=== PATIENT | female | born 1960 | race Caucasian/White ===

== ENCOUNTER → 2016-06-18 | Outpatient (CLI) | payer OTHER ==
[~2016-06-18] VITALS: Ht 172.7 cm; Wt 81.6 kg
[~2016-06-18] MED LIST: LEVO100T5 PO; NS 1,000 ML IV SCH; PRIL20CA9 PO; PROPOFOL 200 MG/20 ML VIAL As Ordered ONE
--- NOTE | 2016-06-18 09:01 | ROOR ---
Patient Name: Jalyn Orr Procedure Date: 06/18/2016 8:39 AM Date of : 1960 Age: 55 Room: [facility] Gender: Female Note Status: Finalized Procedure: Upper GI endoscopy + Biopsies Indications: Dysphagia, Chest pain (non cardiac) Providers: Alessandro Romano MD Referring MD: JANE OCONNELL MD Requesting Provider: Medicines: Monitored Anesthesia Care Complications: No immediate complications. Procedure: Pre-Anesthesia Assessment: - The heart rate, respiratory rate, oxygen saturations, blood pressure, adequacy of pulmonary ventilation, and response to care were monitored throughout the procedure. The Endoscope was introduced through the mouth, and advanced to the second part of duodenum. The upper GI endoscopy was accomplished without difficulty. The patient tolerated the procedure well. Findings: The Z-line was irregular and was found 35 cm from the incisors. Multiple biopsies were obtained with cold forceps for evaluation to rule out Souza's Esophagus randomly at the gastroesophageal junction. A small hiatal hernia was present. No other significant abnormalities were identified in a careful examination of the stomach. The exam of the duodenum was otherwise normal. Impression: - Z-line irregular, 35 cm from the incisors. - Small hiatal hernia. - Multiple biopsies were obtained at the gastroesophageal junction. - The examination was otherwise normal. Recommendation: - Patient has a contact number available for emergencies. The signs and symptoms of potential delayed complications were discussed with the patient. Return to normal activities tomorrow. Written discharge instructions were provided to the patient. - High fiber diet. - Discharge patient to home. - Follow an antireflux regimen. - Continue present medications. - Await pathology results. - Telephone GI clinic for pathology results in 1 week. - The findings and recommendations were discussed with the patient's family. Alessandro Romano MD Alessandro Romano MD 06/18/2016 9:00:31 AM This report has been signed electronically. Number of Addenda: 0 Note Initiated On: 06/18/2016 8:39 AM Estimated Blood Loss: Estimated blood loss: none.
[2016-06-18 09:20] VITALS: BP 158/80
== END | disposition home or self-care (01) ==
LOC: M OPP 07:37
PROVIDERS: ATTEND Internal Medicine Gastroenterology
DX: K22.8 Other specified diseases of esophagus (principal); K44.9 Diaphragmatic hernia without obstruction or gangrene; K20.9 Esophagitis, unspecified; E03.9 Hypothyroidism, unspecified; I25.10 Atherosclerotic heart disease of native coronary artery without angina pectoris; D51.0 Vitamin B12 deficiency anemia due to intrinsic factor deficiency; Z79.899 Other long term (current) drug therapy; Z88.8 Allergy status to other drugs, medicaments and biological substances; Z87.891 Personal history of nicotine dependence

== ENCOUNTER 2016-06-30 18:59 | Emergency (ER) | payer OTHER ==
[~2016-06-30 18:59] MED LIST changes: -NS 1,000 ML IV SCH; -PROPOFOL 200 MG/20 ML VIAL As Ordered ONE
--- NOTE | 2016-06-30 19:53 | ECGEPIP ---
Stationary ECG Study [facility] - ED Test Date: 2016-06-30 Pat Name: SHINE SEYMOUR Department: Room: - Gender: F Churn Driller: ingris : 1960 Requested By: JASSON Guerrier Order Number: [id number] Reading MD: Pamela Horta Measurements Intervals [place] Rate: 106 P: 60 MD: 182 QRS: 7 QRSD: 86 T: 44 QT: 332 QTc: 443 Interpretive Statements SINUS TACHYCARDIA MODERATE ST DEPRESSION INCREASED RATE 03/24/15 Electronically Signed On 06-30-2016 19:53:12 EST by Pamela Horta
[2016-06-30 19:55] LABS: BASO # 0.1 K/mm3 (0.0-0.2); BASO % 0.8 % (0.0-1.0); EOS # 0.5 K/mm3 (0.0-0.50); EOS % 6.4 % (0.0-3.0); LARGE UNSTAINED CELL # 0.1 K/mm3 (0.0-0.4); LYMPH # 1.4 K/mm3 (1.5-4.5); LYMPH % 18.8 % (24.0-44.0); MEAN CORPUSCULAR HEMOGLOBIN 27.4 pg (27.0-33.0); MEAN CORPUSCULAR HGB CONC 32.4 g/dl (32.0-36.5); MEAN CORPUSCULAR VOLUME 84.8 fl (80.0-96.0); MONO # 0.5 K/mm3 (0.0-0.8); MONO % 6.6 % (0.0-5.0); NEUTROPHILS # 4.7 K/mm3 (1.8-7.7); NEUTROPHILS % 66.4 % (36.0-66.0); PLATELET COUNT, AUTOMATED 288 k/mm3 (150-450); RED CELL DISTRIBUTION WIDTH 14.9 % (11.5-14.5); WHITE BLOOD COUNT 7.1 K/mm3 (4.0-10.0)
[2016-06-30] MEDS ORDERED: ASPIRIN 81 MG CHEW TABLET As Ordered ONE (19:57)
[2016-06-30] MEDS ORDERED: NITROGLYCERIN 0.4 MG SUBL TABLET As Ordered ONE (19:58)
[2016-06-30 20:15] LABS: ANION GAP 6 MEQ/L (8-16); BLOOD UREA NITROGEN 15 MG/DL (7-18); CALCIUM LEVEL 9.2 MG/DL (8.5-10.1); CARBON DIOXIDE LEVEL 32 MEQ/L (21-32); CHLORIDE LEVEL 105 MEQ/L (98-107); CREATININE FOR GFR 0.93 MG/DL (0.55-1.02); GLOMERULAR FILTRATION RATE > 60.0 (>51); GLUCOSE, FASTING 113 MG/DL (70-105); POTASSIUM SERUM 3.4 MEQ/L (3.5-5.1); SODIUM LEVEL 143 MEQ/L (136-145)
--- NOTE | 2016-06-30 21:25 | EDDOCDS ---
Nurse's Notes [facility] Name: Jalyn Orr Age: 55 yrs Sex: Female : 1960 Arrival Date: 06/30/2016 Time: 18:59 Bed Family 1 Private MD: Michael Christie Abdul Diagnosis: Other chest pain Presentation: 06/30 19:14 Presenting complaint: Patient states: chest pressure on and off since yesterday. worse dsf with exertion. Adult Sepsis Screening: The patient does not have new or worsening altered mentation. Patient's respiratory rate is less than 22. Systolic blood pressure is greater than 100. Patient has a qSOFA score of 0- Negative Sepsis Screen. Suicide/Homicide risk assessment- the patient denies having any suicidal and/or homicidal ideations and does not present with any other emotional, behavioral or mental health complaints. Status: Patient is not a rn support services or dependent. Transition of care: patient was not received from another setting of care. 19:14 Acuity: ASHLEY Level 3 dsf 19:14 Method Of Arrival: Walkin/Carried/Asstd dsf Triage Assessment: 19:16 General: Appears in no apparent distress, comfortable, Behavior is appropriate for age, dsf cooperative. Pain: Location: chest Pain currently is 4 out of 10 on a pain scale. Pain does not radiate. Quality of pain is described as pressure, Pain began 1 day ago. HIV screening NA for this visit Offered previously. Neurological: Reports weakness fatigue . Respiratory: Denies shortness of breath. GI: Denies nausea. 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 levothyroxine 100 mcg Oral tab 1 tab once daily (Last dose: 06/30/2016 08:00) - PMHx: Hypothyroidism; - PSHx: Left Knee Surgery; Tonsillectomy; - Social history: Smoking status: Patient states was never smoker of tobacco. No barriers to communication noted, The patient speaks fluent German, Speaks appropriately for age. - Family history: Mother has/had Brain Aneurysm. Father has/had DVT. - : The pt / caregiver states he / she is not on anticoagulants. Home medication list is obtained from the patient. - Exposure Risk Screening:: None identified. Screenin:06 Screening information is obtained from the patient. Fall risk: No risks identified. ko2 Assistance ADL's: requires no assistance with activities of daily living. Abuse/DV Screen: The patient / caregiver reports he/she is: not in a situation that causes fear, pain or injury. Nutritional screening: No deficits noted. Advance Directives: Currently, there is no health care proxy. There is no active DNR order. There is There is no Power of Casino Floor Supervisor. home support is adequate. Assessment: 19:30 General: Appears in no apparent distress, Behavior is anxious, cooperative. Pain: ko2 Location: chest. Neurological: Level of Consciousness is awake, alert. Cardiovascular: Heart tones S1 S2 present Rhythm is sinus tachycardia No ectopy. Respiratory: Airway is patent Respiratory effort is even, unlabored, Breath sounds are clear bilaterally. Derm: Skin is normal. 20:36 General: Appears in no apparent distress, Behavior is anxious. Pain: Location: chest ko2 Pain Quality of pain is described as pressure. Neurological: Level of Consciousness is awake, alert. Cardiovascular: Rhythm is regular. Respiratory: Airway is patent Respiratory effort is even, unlabored. Derm: Skin is normal. 20:55 General: Pt has refused CT Angio for the third time and feels that it is her pleurisy ko2 from her acid reflux. Pt was advised that the CT is needed for diagnosis to rule out a blood clot due to her D-dimer being elevated. Pt states that her D-dimer was higher last time when she had pleurisy and that she could go see Dr. Christie Saturday morning or she can come back if pain gets worse. Charge Nurse went in PT is still going to refuse CT. Kailee Jordan notified that pt is going AMA. Charge nurse took out IV. Vital Signs: 19:02 BP 192 / 144; Pulse 94; Resp 18; Temp 97.5(T); Pulse Ox 100% on R/A; Weight 81.65 kg lr2 (R); Height 5 ft. 8 in. (172.72 cm) (R); Pain 0/10; 19:55 Pulse 106 MON; Pulse Ox 98% ; ko2 19:56 BP 150 / 88 (man/); ko2 19:56 BP 182 / 83 (auto/); ko2 20:09 Pulse 100 MON; Pulse Ox 93% ; ko2 20:10 BP 156 / 76 (auto/); ko2 20:11 BP 166 / 86 (auto/); ko2 20:11 Pulse 98 MON; Pulse Ox 94% ; ko2 20:26 BP 167 / 87 (auto/); ko2 20:26 Pulse 94 MON; Pulse Ox 94% ; ko2 19:02 Body Mass Index 27.37 (81.65 kg, 172.72 cm) lr2 Vitals: 19:02 Log In Time: June 30, 2016 at 18:59. lr2 ED Course: 19:02 Patient visited by Hilda Duke. lr2 19:02 Michael Christie is Private Physician. lr2 19:02 Patient moved to Waiting lr2 19:04 Patient moved to Pre RCE lr2 19:16 Triage Initiated dsf 19:20 Jody Conteh,RN is Primary Nurse. cz 19:20 Patient moved to 17 cz 19:26 EKG done. (by ED staff). Reviewed by Jasson Santillan DO. teri 19:27 Pt greeted and oriented to ED. Patient advised of names of staff involved in care, teri location of call julien, wait times and NPO status. Accompanied by Significant Other, Patient has correct armband on for positive identification. Placed in gown. Bed in low position. Call light in reach. Side rails up X 1. instructional design technologist on. Pulse ox on. NIBP on. 19:28 Primary Nurse role handed off by Jody Conteh,LAYTON teri 19:33 Kailee Jordan FNP is PHCP. le 19:47 Patient visited by Elena Esposito RN. ko2 20:03 Patient visited by Kailee Jordan FNP. le 20:06 EKG-ADULT Returned. EDMS 20:07 The patient / caregiver is instructed regarding the plan of care and ED course. ko2 20:08 Inserted saline lock: 20 gauge in right antecubital area and blood collected. The ko2 patient tolerated the procedure well. 20:41 [facility] Payment Agreement was scanned into [employer] and attached to record. gjb 20:44 Patient name changed from Jalyn\S\\S\[place]\S\ to Jalyn\S\ \S\[place]. EDMS 21:00 Michael Christie is Referral Physician. le 21:14 Patient moved to Family 1 may Administered Medications: 20:00 Drug: Aspirin 324 mg [aspirin 81 mg chewable tablet (4 tabs)] Route: PO; ko2 20:05 Drug: Nitrostat 0.4 mg [Nitrostat 0.4 mg sublingual tablet (1 tabs)] Route: Sublingual; ko2 20:12 Drug: Nitrostat 0.4 mg [Nitrostat 0.4 mg sublingual tablet (1 tabs)] Route: Sublingual; ko2 Order Results: Lab Order: Basic Metabolic Profile; SPEC'M 06/30/16 19:46 Test: GLUCOSE, FASTING; Value: 113; Range: 70-105; Abnormal: Above high normal; Units: MG/DL; Status: F Test: BLOOD UREA NITROGEN; Value: 15; Range: 7-18; Units: MG/DL; Status: F Test: CREATININE FOR GFR; Value: 0.93; Range: 0.55-1.02; Units: MG/DL; Status: F Test: GLOMERULAR FILTRATION RATE; Value: > 60.0; Range: >51; Status: F Test: SODIUM LEVEL; Value: 143; Range: 136-145; Units: MEQ/L; Status: F Test: POTASSIUM SERUM; Value: 3.4; Range: 3.5-5.1; Abnormal: Below low normal; Units: MEQ/L; Status: F Test: CHLORIDE LEVEL; Value: 105; Range: 98-107; Units: MEQ/L; Status: F Test: CARBON DIOXIDE LEVEL; Value: 32; Range: 21-32; Units: MEQ/L; Status: F Test: ANION GAP; Value: 6; Range: 8-16; Abnormal: Below low normal; Units: MEQ/L; Status: F Test: CALCIUM LEVEL; Value: 9.2; Range: 8.5-10.1; Units: MG/DL; Status: F Test Note: ; Units are mL/min/1.73 m2 Chronic Kidney Disease Staging per NKF: Stage I & II GFR >=60 Normal to Mildly Decreased Stage III GFR 30-59 Moderately Decreased Stage IV GFR 15-29 Severely Decreased Stage V GFR <15 Very Little GFR Left ESRD GFR <15 on MANNEQUIN SANDER AND FINISHER Lab Order: CBC with Diff; SPEC'M 02/18/17 19:46 Test: WHITE BLOOD COUNT; Value: 7.1; Range: 4.0-10.0; Units: K/mm3; Status: F Test: RED BLOOD COUNT; Value: 5.13; Range: 4.00-5.40; Units: M/mm3; Status: F Test: HEMOGLOBIN; Value: 14.1; Range: 12.0-16.0; Units: g/dl; Status: F Test: HEMATOCRIT; Value: 43.5; Range: 36.0-47.0; Units: %; Status: F Test: MEAN CORPUSCULAR VOLUME; Value: 84.8; Range: 80.0-96.0; Units: fl; Status: F Test: MEAN CORPUSCULAR HEMOGLOBIN; Value: 27.4; Range: 27.0-33.0; Units: pg; Status: F Test: MEAN CORPUSCULAR HGB CONC; Value: 32.4; Range: 32.0-36.5; Units: g/dl; Status: F Test: RED CELL DISTRIBUTION WIDTH; Value: 14.9; Range: 11.5-14.5; Abnormal: Above high normal; Units: %; Status: F Test: PLATELET COUNT, AUTOMATED; Value: 288; Range: 150-450; Units: k/mm3; Status: F Test: NEUTROPHILS %; Value: 66.4; Range: 36.0-66.0; Abnormal: Above high normal; Units: %; Status: F Test: LYMPH %; Value: 18.8; Range: 24.0-44.0; Abnormal: Below low normal; Units: %; Status: F Test: MONO %; Value: 6.6; Range: 0.0-5.0; Abnormal: Above high normal; Units: %; Status: F Test: EOS %; Value: 6.4; Range: 0.0-3.0; Abnormal: Above high normal; Units: %; Status: F Test: BASO %; Value: 0.8; Range: 0.0-1.0; Units: %; Status: F Test: LARGE UNSTAINED CELL %; Value: 1.0; Range: 0.0-4.0; Units: %; Status: F Test: NEUTROPHILS #; Value: 4.7; Range: 1.8-7.7; Units: K/mm3; Status: F Test: LYMPH #; Value: 1.4; Range: 1.5-4.5; Abnormal: Below low normal; Units: K/mm3; Status: F Test: MONO #; Value: 0.5; Range: 0.0-0.8; Units: K/mm3; Status: F Test: EOS #; Value: 0.5; Range: 0.0-0.50; Units: K/mm3; Status: F Test: BASO #; Value: 0.1; Range: 0.0-0.2; Units: K/mm3; Status: F Test: LARGE UNSTAINED CELL #; Value: 0.1; Range: 0.0-0.4; Units: K/mm3; Status: F Lab Order: Cardiac Injury Profile; [facility] 06/30/16 19:46 Test: CPK CREATINE PHOSPHOKINASE; Value: 93; Range: 26-192; Units: U/L; Status: F Test: CK-MB VALUE MASS; Value: 1.1; Range: 0.0-3.6; Units: NG/ML; Status: F Test: MB/CK RELATIVE INDEX; Value: 1.18; Range: < OR =4; Status: F Test Note: ; DIAGNOSIS CRITERIA MMB ng/ml Relative Index (RI) NON-AMI < or = 5 N/A HEART ZONE > 5 < or = 4 AMI > 5 > 4 Lab Order: D-Dimer Quant; [facility] 06/30/16 19:46 Test: D-DIMER QUANT; Value: 583.9; Range: <500; Abnormal: Above high normal; Units: ng/ml; Status: F Lab Order: Troponin; [facility] 06/30/16 19:46 Test: TROPONIN I; Value: < 0.02; Range: < 0.10; Units: NG/ML; Status: F Test Note: ; Troponin I Reference Interval for [employer] LOCI: 99th Percentile= 0.00-0.045 ng/ml Risk Stratification: <= 0.10 ng/ml Decreased Risk for Adverse Clinical Events. 0.10-1.50 ng/ml Increased Risk for Adverse Clinical Events. Evaluation of additional criterion and/or repeat testing in 2-6 hours is suggested to rule out myocardial damage. >= 1.50 ng/ml Indicative of Myocardial Injury. 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 le 21:24 Patient left the ED. ko2 Signatures: Dispatcher [employer] EDDaisy Stratton, RN Elías Coy, RN RN Kailee Pena, DIE SINKING MACHINE OPERATOR DIE SINKING MACHINE OPERATOR Geri Person, Missy GreyRN Elena Bhakta RN RN ko2 Beck, Gabriela gjb Ross, Laura lr2 MTDD
--- NOTE | 2016-06-30 21:25 | EDDOCDS ---
Physician Documentation [facility] Name: Jalyn Orr Age: 55 yrs Sex: Female : 1960 Arrival Date: 06/30/2016 Time: 18:59 Bed Family 1 Private MD: Michael Christie Abdul Disposition: 06/30/16 21:00 Patient has left against medical advice. Impression: Other chest pain. - Patients states they are going to Home/Self Care. - Condition is Good. - Discharge Instructions: Nonspecific Chest Pain. Medication Reconciliation, Local Pharmacy Hours form. Follow up: Michael Christie; When: Call to arrange an appointment; Reason: Recheck today's complaints, Continuance of care. - Problem is new. - Symptoms are unchanged. - Notes: Your EKG and initial lab work, looking specifically at your heart, were normal. As discussed earlier, this should have been repeated at 3:00 a.m.to have more reassurance that this is not a heart event that is causing your pain. Additionally, your d-dimer is mildly elevated. This is a very non-specific test, but we use it to evaluate whether we should do additional testing to evaluate for blood clots in the lungs or legs. The only way to evaluate this fully is to do a CT scan, which you do not want at this time Please return to the ED if your pain worsens, especially if you become more short of breath, your heart rate is elevated, you have any dizziness or have any other concerns. Please follow-up, with Dr Christie, on Saturday Historical: - Allergies: Motrin (Hives); - Home Meds: 1. levothyroxine 100 mcg Oral tab 1 tab once daily (Last dose: 06/30/2016 08:00) - PMHx: Hypothyroidism; - PSHx: Left Knee Surgery; Tonsillectomy; - Social history: Smoking status: Patient states was never smoker of tobacco. No barriers to communication noted, The patient speaks fluent Faroese, Speaks appropriately for age. - Family history: Mother has/had Brain Aneurysm. Father has/had DVT. - : The pt / caregiver states he / she is not on anticoagulants. Home medication list is obtained from the patient. - Exposure Risk Screening:: None identified. [employer] WEBSPHERE COMMERCE CONSULTANT: 06/30 19:16 LMP N/A - Post-menopause dsf Vital Signs: 19:02 BP 192 / 144; Pulse 94; Resp 18; Temp 97.5(T); Pulse Ox 100% on R/A; Weight 81.65 kg / lr2 180.01 lbs (R); Height 5 ft. 8 in. (172.72 cm) (R); Pain 0/10; 19:55 Pulse 106 MON; Pulse Ox 98% ; ko2 19:56 BP 150 / 88 (man/); ko2 19:56 BP 182 / 83 (auto/); ko2 20:09 Pulse 100 MON; Pulse Ox 93% ; ko2 20:10 BP 156 / 76 (auto/); ko2 20:11 BP 166 / 86 (auto/); ko2 20:11 Pulse 98 MON; Pulse Ox 94% ; ko2 20:26 BP 167 / 87 (auto/); ko2 20:26 Pulse 94 MON; Pulse Ox 94% ; ko2 19:02 Body Mass Index 27.37 (81.65 kg, 172.72 cm) lr2 MDM: 19:21 ECG WITH READING ER PHYS+CARDIAG ordered. EDMS 19:41 [facility]. Nursing Order ordered. le 19:46 Aspirin Chewable Tablet 324 mg PO once ordered. le 19:46 Nitrostat 0.4 mg Sublingual every 5 minutes; hold if SBP<90mmHg.Document Pain Score le Response to Each Dose x3 ordered. 19:46 Search Advertising Strategist/Pulse Ox/q 30 min VS ordered. le 19:46 IV Saline Lock ordered. le 19:46 Rhythm Strip to chart ordered. le 19:46 Undress patient appropriately for examination ordered. le 19:48 Basic Metabolic Profile Ordered. EDMS 19:48 CBC with Diff Ordered. EDMS 19:48 Cardiac Injury Profile Ordered. EDMS 19:48 D-Dimer Quant Ordered. EDMS 19:48 Troponin Ordered. EDMS 20:07 [facility] Trade Show Manager Order ordered. le 20:08 D-Dimer Quant Reviewed. le 20:08 [facility] Trade Show Manager Order complete. ml3 20:10 CT Chest Angio R/O PE Ordered. EDMS 20:38 Financial registration complete. gjb 20:41 [facility] Payment Agreement was scanned into [employer] and attached to record. gjb 20:53 Basic Metabolic Profile Reviewed. le 20:53 CBC with Diff Reviewed. le 20:53 Cardiac Injury Profile Reviewed. le 20:53 Troponin Reviewed. le 20:53 EKG-ADULT Reviewed. le Administered Medications: 20:00 Drug: Aspirin 324 mg [aspirin 81 mg chewable tablet (4 tabs)] Route: PO; ko2 20:05 Drug: Nitrostat 0.4 mg [Nitrostat 0.4 mg sublingual tablet (1 tabs)] Route: Sublingual; ko2 20:12 Drug: Nitrostat 0.4 mg [Nitrostat 0.4 mg sublingual tablet (1 tabs)] Route: Sublingual; ko2 Signatures: Dispatcher [employer] EDMS Genia Thompson, Video Control Engineer Unit ml3 Kailee Jordan, Missy Howard,RN RN Elena MatosRN RN ko2 Lotus Edward The chart was reviewed and I authenticate all verbal orders and agree with the evaluation and treatment provided.Corrections: (The following items were deleted from the chart) 20:28 19:49 Chest, 2 view (PA\E\Lat)+XR ordered. EDMS EDMS Attachments: 20:41 [facility] Payment Agreement gjb MTDD
--- NOTE | 2016-07-02 22:24 | EDDOCDS ---
Physician Documentation [facility] Name: Jalyn Orr Age: 55 yrs Sex: Female : 1960 Arrival Date: 06/30/2016 Time: 18:59 Bed Family 1 Private MD: Michael Christie Abdul Disposition: 06/30/16 21:00 Patient has left against medical advice. Impression: Other chest pain. - Patients states they are going to Home/Self Care. - Condition is Good. - Discharge Instructions: Nonspecific Chest Pain. Medication Reconciliation, Local Pharmacy Hours form. Follow up: Michael Christie; When: Call to arrange an appointment; Reason: Recheck today's complaints, Continuance of care. - Problem is new. - Symptoms are unchanged. - Notes: Your EKG and initial lab work, looking specifically at your heart, were normal. As discussed earlier, this should have been repeated at 3:00 a.m.to have more reassurance that this is not a heart event that is causing your pain. Additionally, your d-dimer is mildly elevated. This is a very non-specific test, but we use it to evaluate whether we should do additional testing to evaluate for blood clots in the lungs or legs. The only way to evaluate this fully is to do a CT scan, which you do not want at this time Please return to the ED if your pain worsens, especially if you become more short of breath, your heart rate is elevated, you have any dizziness or have any other concerns. Please follow-up, with Dr Christie, on Saturday Historical: - Allergies: Motrin (Hives); - Home Meds: 1. levothyroxine 100 mcg Oral tab 1 tab once daily (Last dose: 06/30/2016 08:00) - PMHx: Hypothyroidism; - PSHx: Left Knee Surgery; Tonsillectomy; - Social history: Smoking status: Patient states was never smoker of tobacco. No barriers to communication noted, The patient speaks fluent Faroese, Speaks appropriately for age. - Family history: Mother has/had Brain Aneurysm. Father has/had DVT. - : The pt / caregiver states he / she is not on anticoagulants. Home medication list is obtained from the patient. - Exposure Risk Screening:: None identified. LAUNDRY ROUTE DRIVER: 06/30 19:16 LMP N/A - Post-menopause dsf Vital Signs: 19:02 BP 192 / 144; Pulse 94; Resp 18; Temp 97.5(T); Pulse Ox 100% on R/A; Weight 81.65 kg / lr2 180.01 lbs (R); Height 5 ft. 8 in. (172.72 cm) (R); Pain 0/10; 19:55 Pulse 106 MON; Pulse Ox 98% ; ko2 19:56 BP 150 / 88 (man/); ko2 19:56 BP 182 / 83 (auto/); ko2 20:09 Pulse 100 MON; Pulse Ox 93% ; ko2 20:10 BP 156 / 76 (auto/); ko2 20:11 BP 166 / 86 (auto/); ko2 20:11 Pulse 98 MON; Pulse Ox 94% ; ko2 20:26 BP 167 / 87 (auto/); ko2 20:26 Pulse 94 MON; Pulse Ox 94% ; ko2 19:02 Body Mass Index 27.37 (81.65 kg, 172.72 cm) lr2 MDM: 19:21 ECG WITH READING ER PHYS+CARDIAG ordered. EDMS 19:41 [facility] [place] [place]. Nursing Order ordered. le 19:46 Aspirin Chewable Tablet 324 mg PO once ordered. le 19:46 Nitrostat 0.4 mg Sublingual every 5 minutes; hold if SBP<90mmHg.Document Pain Score le Response to Each Dose x3 ordered. 19:46 Corridor Redevelopment Manager/Pulse Ox/q 30 min VS ordered. le 19:46 IV Saline Lock ordered. le 19:46 Rhythm Strip to chart ordered. le 19:46 Undress patient appropriately for examination ordered. le 19:48 Basic Metabolic Profile Ordered. EDMS 19:48 CBC with Diff Ordered. EDMS 19:48 Cardiac Injury Profile Ordered. EDMS 19:48 D-Dimer Quant Ordered. EDMS 19:48 Troponin Ordered. EDMS 20:07 [facility] [place] [place] Box Press Operator Order ordered. le 20:08 D-Dimer Quant Reviewed. le 20:08 [facility] [place] [place] Box Press Operator Order complete. ml3 20:10 CT Chest Angio R/O PE Ordered. EDMS 20:38 Financial registration complete. gjb 20:41 [facility] Payment Agreement was scanned into [employer] and attached to record. gjb 20:53 Basic Metabolic Profile Reviewed. le 20:53 CBC with Diff Reviewed. le 20:53 Cardiac Injury Profile Reviewed. le 20:53 Troponin Reviewed. le 20:53 EKG-ADULT Reviewed. le 07/01 09:50 T-Sheet-- Draft Copy was scanned into [employer] and attached to record. jp5 07/02 11:03 Refusal of Services was scanned into [employer] and attached to record. gb 11:03 ECG/EKG was scanned into [employer] and attached to record. gb Administered Medications: 06/30 20:00 Drug: Aspirin 324 mg [aspirin 81 mg chewable tablet (4 tabs)] Route: PO; ko2 20:05 Drug: Nitrostat 0.4 mg [Nitrostat 0.4 mg sublingual tablet (1 tabs)] Route: Sublingual; ko2 20:12 Drug: Nitrostat 0.4 mg [Nitrostat 0.4 mg sublingual tablet (1 tabs)] Route: Sublingual; ko2 Signatures: Dispatcher [employer] EDMS Analilia Baker, Reg Reg gb Genia Thompson, Gas Appliance Mechanic Unit ml3 Kailee Jordan, NOZZLE WORKER NOZZLE WORKER Missy Bhatti,RN RN Elena Matos,RN RN ko2 Bryson Hewitt jp5 Lotus Edward The chart was reviewed and I authenticate all verbal orders and agree with the evaluation and treatment provided.Corrections: (The following items were deleted from the chart) 20:28 19:49 Chest, 2 view (PA\E\Lat)+XR ordered. EDMS EDMS Attachments: 20:41 [facility] Payment Agreement sukhi 07/01 09:50 T-Sheet-- Draft Copy [facility] 11:03 ECG/EKG Chart Complete MTDD
--- NOTE | 2016-07-02 22:24 | EDDOCDS ---
Nurse's Notes [facility] Name: Shine Orr Age: 55 yrs Sex: Female : 1960 Arrival Date: 06/30/2016 Time: 18:59 Bed Family 1 Private MD: Michael Christie Abdul Diagnosis: Other chest pain Presentation: 06/30 19:14 Presenting complaint: Patient states: chest pressure on and off since yesterday. worse dsf with exertion. Adult Sepsis Screening: The patient does not have new or worsening altered mentation. Patient's respiratory rate is less than 22. Systolic blood pressure is greater than 100. Patient has a qSOFA score of 0- Negative Sepsis Screen. Suicide/Homicide risk assessment- the patient denies having any suicidal and/or homicidal ideations and does not present with any other emotional, behavioral or mental health complaints. Status: Patient is not a legal services professional or dependent. Transition of care: patient was not received from another setting of care. 19:14 Acuity: ASHLEY Level 3 dsf 19:14 Method Of Arrival: Walkin/Carried/Asstd dsf Triage Assessment: 19:16 General: Appears in no apparent distress, comfortable, Behavior is appropriate for age, dsf cooperative. Pain: Location: chest Pain currently is 4 out of 10 on a pain scale. Pain does not radiate. Quality of pain is described as pressure, Pain began 1 day ago. HIV screening NA for this visit Offered previously. Neurological: Reports weakness fatigue . Respiratory: Denies shortness of breath. GI: Denies nausea. RN MEDICAL SURGICAL: 19:16 LMP N/A - Post-menopause dsf Historical: - Allergies: Motrin (Hives); - Home Meds: 1. levothyroxine 100 mcg Oral tab 1 tab once daily (Last dose: 06/30/2016 08:00) - PMHx: Hypothyroidism; - PSHx: Left Knee Surgery; Tonsillectomy; - Social history: Smoking status: Patient states was never smoker of tobacco. No barriers to communication noted, The patient speaks fluent Telugu, Speaks appropriately for age. - Family history: Mother has/had Brain Aneurysm. Father has/had DVT. - : The pt / caregiver states he / she is not on anticoagulants. Home medication list is obtained from the patient. - Exposure Risk Screening:: None identified. Screenin:06 Screening information is obtained from the patient. Fall risk: No risks identified. ko2 Assistance ADL's: requires no assistance with activities of daily living. Abuse/DV Screen: The patient / caregiver reports he/she is: not in a situation that causes fear, pain or injury. Nutritional screening: No deficits noted. Advance Directives: Currently, there is no health care proxy. There is no active DNR order. There is There is no Power of Security System Administrator. home support is adequate. Assessment: 19:30 General: Appears in no apparent distress, Behavior is anxious, cooperative. Pain: ko2 Location: chest. Neurological: Level of Consciousness is awake, alert. Cardiovascular: Heart tones S1 S2 present Rhythm is sinus tachycardia No ectopy. Respiratory: Airway is patent Respiratory effort is even, unlabored, Breath sounds are clear bilaterally. Derm: Skin is normal. 20:36 General: Appears in no apparent distress, Behavior is anxious. Pain: Location: chest ko2 Pain Quality of pain is described as pressure. Neurological: Level of Consciousness is awake, alert. Cardiovascular: Rhythm is regular. Respiratory: Airway is patent Respiratory effort is even, unlabored. Derm: Skin is normal. 20:55 General: Pt has refused CT Angio for the third time and feels that it is her pleurisy ko2 from her acid reflux. Pt was advised that the CT is needed for diagnosis to rule out a blood clot due to her D-dimer being elevated. Pt states that her D-dimer was higher last time when she had pleurisy and that she could go see Dr. Christie Saturday morning or she can come back if pain gets worse. Charge Nurse went in PT is still going to refuse CT. Kailee Jordan notified that pt is going AMA. Charge nurse took out IV. Vital Signs: 19:02 BP 192 / 144; Pulse 94; Resp 18; Temp 97.5(T); Pulse Ox 100% on R/A; Weight 81.65 kg lr2 (R); Height 5 ft. 8 in. (172.72 cm) (R); Pain 0/10; 19:55 Pulse 106 MON; Pulse Ox 98% ; ko2 19:56 BP 150 / 88 (man/); ko2 19:56 BP 182 / 83 (auto/); ko2 20:09 Pulse 100 MON; Pulse Ox 93% ; ko2 20:10 BP 156 / 76 (auto/); ko2 20:11 BP 166 / 86 (auto/); ko2 20:11 Pulse 98 MON; Pulse Ox 94% ; ko2 20:26 BP 167 / 87 (auto/); ko2 20:26 Pulse 94 MON; Pulse Ox 94% ; ko2 19:02 Body Mass Index 27.37 (81.65 kg, 172.72 cm) lr2 Vitals: 19:02 Log In Time: June 30, 2016 at 18:59. lr2 ED Course: 19:02 Patient visited by Hilda Duke. lr2 19:02 Michael Christie is Private Physician. lr2 19:02 Patient moved to Waiting lr2 19:04 Patient moved to Pre RCE lr2 19:16 Triage Initiated dsf 19:20 Jody Conteh,RN is Primary Nurse. cz 19:20 Patient moved to 17 cz 19:26 EKG done. (by ED staff). Reviewed by Jasson Santillan DO. teri 19:27 Pt greeted and oriented to ED. Patient advised of names of staff involved in care, teri location of call julien, wait times and NPO status. Accompanied by Significant Other, Patient has correct armband on for positive identification. Placed in gown. Bed in low position. Call light in reach. Side rails up X 1. monitor and storage bin tender on. Pulse ox on. NIBP on. 19:28 Primary Nurse role handed off by Jody Conteh,LAYTON teri 19:33 Kailee Jordan FNP is PHCP. le 19:47 Patient visited by Elena Esposito RN. ko2 20:03 Patient visited by Kailee Jordan FNP. le 20:06 EKG-ADULT Returned. EDMS 20:07 The patient / caregiver is instructed regarding the plan of care and ED course. ko2 20:08 Inserted saline lock: 20 gauge in right antecubital area and blood collected. The ko2 patient tolerated the procedure well. 20:41 [facility] Payment Agreement was scanned into webme and attached to record. gjb 20:44 Patient name changed from Shine\S\\S\Catarina\S\ to Shine\S\ \S\Catarina. EDMS 21:00 Michael Christie is Referral Physician. le 21:14 Patient moved to Family 1 may 14 09:50 T-Sheet-- Draft Copy was scanned into webme and attached to record. jp5 07/02 11:03 Refusal of Services was scanned into webme and attached to record. gb 11:03 ECG/EKG was scanned into webme and attached to record. gb Administered Medications: 06/30 20:00 Drug: Aspirin 324 mg [aspirin 81 mg chewable tablet (4 tabs)] Route: PO; ko2 20:05 Drug: Nitrostat 0.4 mg [Nitrostat 0.4 mg sublingual tablet (1 tabs)] Route: Sublingual; ko2 20:12 Drug: Nitrostat 0.4 mg [Nitrostat 0.4 mg sublingual tablet (1 tabs)] Route: Sublingual; ko2 Attachments: 07/02 11:03 Refusal of Services gb Order Results: Lab Order: Basic Metabolic Profile; SPEC'M 06/30/16 19:46 Test: GLUCOSE, FASTING; Value: 113; Range: 70-105; Abnormal: Above high normal; Units: MG/DL; Status: F Test: BLOOD UREA NITROGEN; Value: 15; Range: 7-18; Units: MG/DL; Status: F Test: CREATININE FOR GFR; Value: 0.93; Range: 0.55-1.02; Units: MG/DL; Status: F Test: GLOMERULAR FILTRATION RATE; Value: > 60.0; Range: >51; Status: F Test: SODIUM LEVEL; Value: 143; Range: 136-145; Units: MEQ/L; Status: F Test: POTASSIUM SERUM; Value: 3.4; Range: 3.5-5.1; Abnormal: Below low normal; Units: MEQ/L; Status: F Test: CHLORIDE LEVEL; Value: 105; Range: 98-107; Units: MEQ/L; Status: F Test: CARBON DIOXIDE LEVEL; Value: 32; Range: 21-32; Units: MEQ/L; Status: F Test: ANION GAP; Value: 6; Range: 8-16; Abnormal: Below low normal; Units: MEQ/L; Status: F Test: CALCIUM LEVEL; Value: 9.2; Range: 8.5-10.1; Units: MG/DL; Status: F Test Note: ; Units are mL/min/1.73 m2 Chronic Kidney Disease Staging per NKF: Stage I & II GFR >=60 Normal to Mildly Decreased Stage III GFR 30-59 Moderately Decreased Stage IV GFR 15-29 Severely Decreased Stage V GFR <15 Very Little GFR Left ESRD GFR <15 on LAND TITLE EXAMINER Lab Order: CBC with Diff; HUBERT 06/30/16 19:46 Test: WHITE BLOOD COUNT; Value: 7.1; Range: 4.0-10.0; Units: K/mm3; Status: F Test: RED BLOOD COUNT; Value: 5.13; Range: 4.00-5.40; Units: M/mm3; Status: F Test: HEMOGLOBIN; Value: 14.1; Range: 12.0-16.0; Units: g/dl; Status: F Test: HEMATOCRIT; Value: 43.5; Range: 36.0-47.0; Units: %; Status: F Test: MEAN CORPUSCULAR VOLUME; Value: 84.8; Range: 80.0-96.0; Units: fl; Status: F Test: MEAN CORPUSCULAR HEMOGLOBIN; Value: 27.4; Range: 27.0-33.0; Units: pg; Status: F Test: MEAN CORPUSCULAR HGB CONC; Value: 32.4; Range: 32.0-36.5; Units: g/dl; Status: F Test: RED CELL DISTRIBUTION WIDTH; Value: 14.9; Range: 11.5-14.5; Abnormal: Above high normal; Units: %; Status: F Test: PLATELET COUNT, AUTOMATED; Value: 288; Range: 150-450; Units: k/mm3; Status: F Test: NEUTROPHILS %; Value: 66.4; Range: 36.0-66.0; Abnormal: Above high normal; Units: %; Status: F Test: LYMPH %; Value: 18.8; Range: 24.0-44.0; Abnormal: Below low normal; Units: %; Status: F Test: MONO %; Value: 6.6; Range: 0.0-5.0; Abnormal: Above high normal; Units: %; Status: F Test: EOS %; Value: 6.4; Range: 0.0-3.0; Abnormal: Above high normal; Units: %; Status: F Test: BASO %; Value: 0.8; Range: 0.0-1.0; Units: %; Status: F Test: LARGE UNSTAINED CELL %; Value: 1.0; Range: 0.0-4.0; Units: %; Status: F Test: NEUTROPHILS #; Value: 4.7; Range: 1.8-7.7; Units: K/mm3; Status: F Test: LYMPH #; Value: 1.4; Range: 1.5-4.5; Abnormal: Below low normal; Units: K/mm3; Status: F Test: MONO #; Value: 0.5; Range: 0.0-0.8; Units: K/mm3; Status: F Test: EOS #; Value: 0.5; Range: 0.0-0.50; Units: K/mm3; Status: F Test: BASO #; Value: 0.1; Range: 0.0-0.2; Units: K/mm3; Status: F Test: LARGE UNSTAINED CELL #; Value: 0.1; Range: 0.0-0.4; Units: K/mm3; Status: F Lab Order: Cardiac Injury Profile; SPEC'M 06/30/16 19:46 Test: CPK CREATINE PHOSPHOKINASE; Value: 93; Range: 26-192; Units: U/L; Status: F Test: CK-MB VALUE MASS; Value: 1.1; Range: 0.0-3.6; Units: NG/ML; Status: F Test: MB/CK RELATIVE INDEX; Value: 1.18; Range: < OR =4; Status: F Test Note: ; DIAGNOSIS CRITERIA MMB ng/ml Relative Index (RI) NON-AMI < or = 5 N/A HEART ZONE > 5 < or = 4 AMI > 5 > 4 Lab Order: D-Dimer Quant; SPEC'M 06/30/16 19:46 Test: D-DIMER QUANT; Value: 583.9; Range: <500; Abnormal: Above high normal; Units: ng/ml; Status: F Lab Order: Troponin; SPEC' 06/30/16 19:46 Test: TROPONIN I; Value: < 0.02; Range: < 0.10; Units: NG/ML; Status: F Test Note: ; Troponin I Reference Interval for Siemens [place] LOCI: 99th Percentile= 0.00-0.045 ng/ml Risk Stratification: <= 0.10 ng/ml Decreased Risk for Adverse Clinical Events. 0.10-1.50 ng/ml Increased Risk for Adverse Clinical Events. Evaluation of additional criterion and/or repeat testing in 2-6 hours is suggested to rule out myocardial damage. >= 1.50 ng/ml Indicative of Myocardial Injury. 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 le 21:24 Patient left the ED. ko2 Signatures: Dispatcher [employer] EDMS Daisy Valdivia RN RN jan Zecher, Calvin, Analilia Sheriff RN, Reg Reg Kailee Simpson, CONTRACT MANAGEMENT SPECIALIST CONTRACT MANAGEMENT SPECIALIST Geri Person, Missy Grey,RN Elena Bhakta RN RN Bryson Macdonald Gabriela gjb Ross, Laura lr2 Chart Complete MTDD
--- NOTE | 2016-07-02 22:24 | EDDOCDS ---
Physician Documentation [facility] Name: Jalyn Orr Age: 55 yrs Sex: Female : 1960 Arrival Date: 06/30/2016 Time: 18:59 Bed Family 1 Private MD: Michael Christie Abdul Disposition: 06/30/16 21:00 Patient has left against medical advice. Impression: Other chest pain. - Patients states they are going to Home/Self Care. - Condition is Good. - Discharge Instructions: Nonspecific Chest Pain. Medication Reconciliation, Local Pharmacy Hours form. Follow up: Michael Christie; When: Call to arrange an appointment; Reason: Recheck today's complaints, Continuance of care. - Problem is new. - Symptoms are unchanged. - Notes: Your EKG and initial lab work, looking specifically at your heart, were normal. As discussed earlier, this should have been repeated at 3:00 a.m.to have more reassurance that this is not a heart event that is causing your pain. Additionally, your d-dimer is mildly elevated. This is a very non-specific test, but we use it to evaluate whether we should do additional testing to evaluate for blood clots in the lungs or legs. The only way to evaluate this fully is to do a CT scan, which you do not want at this time Please return to the ED if your pain worsens, especially if you become more short of breath, your heart rate is elevated, you have any dizziness or have any other concerns. Please follow-up, with Dr Christie, on Saturday Historical: - Allergies: Motrin (Hives); - Home Meds: 1. levothyroxine 100 mcg Oral tab 1 tab once daily (Last dose: 06/30/2016 08:00) - PMHx: Hypothyroidism; - PSHx: Left Knee Surgery; Tonsillectomy; - Social history: Smoking status: Patient states was never smoker of tobacco. No barriers to communication noted, The patient speaks fluent [place], Speaks appropriately for age. - Family history: Mother has/had Brain Aneurysm. Father has/had DVT. - : The pt / caregiver states he / she is not on anticoagulants. Home medication list is obtained from the patient. - Exposure Risk Screening:: None identified. DEPUTY PROBATION OFFICER: 06/30 19:16 LMP N/A - Post-menopause dsf Vital Signs: 19:02 BP 192 / 144; Pulse 94; Resp 18; Temp 97.5(T); Pulse Ox 100% on R/A; Weight 81.65 kg / lr2 180.01 lbs (R); Height 5 ft. 8 in. (172.72 cm) (R); Pain 0/10; 19:55 Pulse 106 MON; Pulse Ox 98% ; ko2 19:56 BP 150 / 88 (man/); ko2 19:56 BP 182 / 83 (auto/); ko2 20:09 Pulse 100 MON; Pulse Ox 93% ; ko2 20:10 BP 156 / 76 (auto/); ko2 20:11 BP 166 / 86 (auto/); ko2 20:11 Pulse 98 MON; Pulse Ox 94% ; ko2 20:26 BP 167 / 87 (auto/); ko2 20:26 Pulse 94 MON; Pulse Ox 94% ; ko2 19:02 Body Mass Index 27.37 (81.65 kg, 172.72 cm) lr2 MDM: 19:21 ECG WITH READING ER PHYS+CARDIAG ordered. EDMS 19:41 [facility]. Nursing Order ordered. le 19:46 Aspirin Chewable Tablet 324 mg PO once ordered. le 19:46 Nitrostat 0.4 mg Sublingual every 5 minutes; hold if SBP<90mmHg.Document Pain Score le Response to Each Dose x3 ordered. 19:46 Underground Repairer/Pulse Ox/q 30 min VS ordered. le 19:46 IV Saline Lock ordered. le 19:46 Rhythm Strip to chart ordered. le 19:46 Undress patient appropriately for examination ordered. le 19:48 Basic Metabolic Profile Ordered. EDMS 19:48 CBC with Diff Ordered. EDMS 19:48 Cardiac Injury Profile Ordered. EDMS 19:48 D-Dimer Quant Ordered. EDMS 19:48 Troponin Ordered. EDMS 20:07 [facility] Pricing Consultant Order ordered. le 20:08 D-Dimer Quant Reviewed. le 20:08 [facility] [place] Pricing Consultant Order complete. ml3 20:10 CT Chest Angio R/O PE Ordered. EDMS 20:38 Financial registration complete. gjb 20:41 [facility] Payment Agreement was scanned into GetSet and attached to record. gjb 20:53 Basic Metabolic Profile Reviewed. le 20:53 CBC with Diff Reviewed. le 20:53 Cardiac Injury Profile Reviewed. le 20:53 Troponin Reviewed. le 20:53 EKG-ADULT Reviewed. le 07/01 09:50 T-Sheet-- Draft Copy was scanned into GetSet and attached to record. jp5 07/02 11:03 Refusal of Services was scanned into [employer] and attached to record. gb 11:03 ECG/EKG was scanned into [employer] and attached to record. gb Administered Medications: 06/30 20:00 Drug: Aspirin 324 mg [aspirin 81 mg chewable tablet (4 tabs)] Route: PO; ko2 20:05 Drug: Nitrostat 0.4 mg [Nitrostat 0.4 mg sublingual tablet (1 tabs)] Route: Sublingual; ko2 20:12 Drug: Nitrostat 0.4 mg [Nitrostat 0.4 mg sublingual tablet (1 tabs)] Route: Sublingual; ko2 Signatures: Dispatcher [employer] EDMS Analilia Baker, Reg Reg gb Genia Thompson, Cocoa Mill Operator Unit ml3 Kailee Jordan, QUARRY PLUG AND FEATHER DRILLER QUARRY PLUG AND FEATHER DRILLER Missy Bhatti,RN RN Elena Matos,RN RN ko2 Bryson Hewitt jp5 Lotus Edward The chart was reviewed and I authenticate all verbal orders and agree with the evaluation and treatment provided.Corrections: (The following items were deleted from the chart) 20:28 19:49 Chest, 2 view (PA\E\Lat)+XR ordered. EDMS EDMS Attachments: 20:41 [facility] [place] [facility] Payment Agreement sukhi 07/01 09:50 T-Sheet-- Draft Copy [facility] 11:03 ECG/EKG Chart Complete MTDD
== END 2016-06-30 20:59 | disposition left against medical advice (07) ==
LOC: M ED 18:59
DX: R07.9 Chest pain, unspecified (principal); E03.9 Hypothyroidism, unspecified; Z82.49 Family history of ischemic heart disease and other diseases of the circulatory system; Z79.899 Other long term (current) drug therapy; Z88.6 Allergy status to analgesic agent

== ENCOUNTER → 2016-08-16 | Outpatient (CLI) | payer OTHER ==
[~2016-08-16] MED LIST changes: +E-Z PAQUE 60% w/v SUSP 355ML BOTTLE As Ordered ONE; +VARIBAR NECTAR 40% w/v 240ML SUSP BTL As Ordered ONE; +VARIBAR PUDDING 40% w/v 230ML TUBE As Ordered ONE
--- NOTE | 2016-08-16 13:42 | REP ---
MODIFIED BARIUM SWALLOW: Modified barium swallow performed. Barium materials of varying consistencies were ingested with the speech pathologist on hand. There was prompt passage of these materials through the oropharynx and hypopharynx into the esophagus with evidence of laryngeal penetration or tracheal aspiration. Please see the speech pathologist report for further details. 30 seconds of fluoroscopy time utilized. Signed by Santos Gupta MD 08/16/2016 04:52 P
== END ==
LOC: M ST 10:55
PROVIDERS: ATTEND Internal Medicine Gastroenterology
DX: R13.10 Dysphagia, unspecified (principal)

== ENCOUNTER → 2016-08-28 | Outpatient (CLI) | payer OTHER ==
[~2016-08-28] MED LIST changes: -E-Z PAQUE 60% w/v SUSP 355ML BOTTLE As Ordered ONE; -VARIBAR NECTAR 40% w/v 240ML SUSP BTL As Ordered ONE; -VARIBAR PUDDING 40% w/v 230ML TUBE As Ordered ONE
[2016-08-28 09:02] LABS: MEAN CORPUSCULAR HEMOGLOBIN 26.5 pg (27.0-33.0); MEAN CORPUSCULAR HGB CONC 31.4 g/dl (32.0-36.5); MEAN CORPUSCULAR VOLUME 84.4 fl (80.0-96.0); RED CELL DISTRIBUTION WIDTH 15.1 % (11.5-14.5)
[2016-08-28 09:25] LABS: ALBUMIN 3.8 GM/DL (3.2-5.2); ALBUMIN/GLOBULIN RATIO 1.12 (1.00-1.93); ALKALINE PHOSPHATASE 67 U/L (45-117); ALT/SGPT 22 U/L (12-78); ANION GAP 6 MEQ/L (8-16); AST/SGOT 14 U/L (15-37); BILIRUBIN,TOTAL 0.4 MG/DL (0.2-1.0); BLOOD UREA NITROGEN 12 MG/DL (7-18); CALCIUM LEVEL 8.7 MG/DL (8.5-10.1); CARBON DIOXIDE LEVEL 31 MEQ/L (21-32); CHLORIDE LEVEL 105 MEQ/L (98-107); CHOLESTEROL LEVEL 251 MG/DL (<200); CREATININE FOR GFR 0.78 MG/DL (0.55-1.02); GLOMERULAR FILTRATION RATE > 60.0 (>51); GLUCOSE, FASTING 86 MG/DL (70-105); POTASSIUM SERUM 4.5 MEQ/L (3.5-5.1); SODIUM LEVEL 142 MEQ/L (136-145); THYROXINE (T4) 9.2 UG/DL (4.5-12.0); TOTAL PROTEIN 7.2 GM/DL (6.4-8.2); TRIGLYCERIDES LEVEL 67 MG/DL (<150)
--- NOTE | 2016-08-28 11:17 | REP ---
Chest two views HISTORY: Hypertension Comparison: 03/24/2015 The lungs are clear. The heart is normal in size. The pulmonary vasculature is normal in appearance. The bony structure is intact. IMPRESSION: No acute disease. Signed by Kristopher Thomas MD 08/28/2016 11:09 A
--- NOTE | 2016-08-28 18:57 | ECGEPIP ---
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
== END ==
LOC: M LAB 07:56
PROVIDERS: ATTEND Family Medicine
DX: I10 Essential (primary) hypertension (principal)

== ENCOUNTER → 2016-09-12 | Outpatient (REF) | payer OTHER | LOC: M LAB REF 16:16 | PROVIDERS: ATTEND Surgery | DX: Z02.1 Encounter for pre-employment examination (principal) ==

== ENCOUNTER → 2016-10-18 | Outpatient (CLI) | payer OTHER ==
--- NOTE | 2016-10-18 17:32 | REP ---
LEFT WRIST SERIES: Four views of the left wrist are performed. There is no evidence of acute fracture or dislocation. There is moderate narrowing with subchondral sclerosis and cystic change and mild spurring at the joint between the trapezium and base of first metacarpal. IMPRESSION: No acute fracture or dislocation. Degenerative changes are at the joint between the trapezium base of first metacarpal. Signed by Santos Gupta MD 10/18/2016 08:07 P
== END ==
LOC: M ADAMS 16:41
PROVIDERS: ATTEND Physician Assistant
DX: M25.532 Pain in left wrist (principal)

== ENCOUNTER → 2017-01-21 | Outpatient (CLI) | payer OTHER ==
[~2017-01-21] MED LIST changes: +CARA1TAB6 PO; +PROT1TAB2 PO
[2017-01-21 08:14] LABS: MEAN CORPUSCULAR HEMOGLOBIN 27.6 pg (27.0-33.0); MEAN CORPUSCULAR VOLUME 86.1 fl (80.0-96.0); RED CELL DISTRIBUTION WIDTH 15.2 % (11.5-14.5); WHITE BLOOD COUNT 4.8 K/mm3 (4.0-10.0)
--- NOTE | 2017-01-21 08:23 | REP ---
Chest x-ray: Two views. History: Pneumonia. fatigue. Comparison study: August 28, 2016 . Findings: The lungs are well inflated and free of infiltrate. The pleural angles are sharp. The heart size is normal. Pulmonary vasculature is not increased. No significant bony abnormality is seen. Impression: Negative chest x-ray. Signed by Tay Rowe MD 01/21/2017 08:15 A
[2017-01-21 08:34] LABS: ALBUMIN 3.8 GM/DL (3.2-5.2); ALBUMIN/GLOBULIN RATIO 1.23 (1.00-1.93); ALKALINE PHOSPHATASE 59 U/L (45-117); ALT/SGPT 22 U/L (12-78); ANION GAP 7 MEQ/L (8-16); AST/SGOT 13 U/L (15-37); BILIRUBIN,TOTAL 0.3 MG/DL (0.2-1.0); BLOOD UREA NITROGEN 12 MG/DL (7-18); CALCIUM LEVEL 9.3 MG/DL (8.5-10.1); CARBON DIOXIDE LEVEL 28 MEQ/L (21-32); CHLORIDE LEVEL 108 MEQ/L (98-107); CHOLESTEROL LEVEL 225 MG/DL (<200); CREATININE FOR GFR 0.76 MG/DL (0.55-1.02); GLOMERULAR FILTRATION RATE > 60.0 (>51); GLUCOSE, FASTING 90 MG/DL (70-105); PERCENT SATURATION 26.1 % (13.2-45.0); POTASSIUM SERUM 4.2 MEQ/L (3.5-5.1); SODIUM LEVEL 143 MEQ/L (136-145); TOTAL IRON BINDING CAPACITY 345 UG/DL (250-450); TOTAL PROTEIN 6.9 GM/DL (6.4-8.2); TRIGLYCERIDES LEVEL 71 MG/DL (<150)
[2017-01-21 10:35] LABS: CONTROL LINE MONO INT CTR LINE PRESENT
== END ==
LOC: M LAB 07:32
PROVIDERS: ATTEND Family Medicine
DX: J18.9 Pneumonia, unspecified organism (principal); R53.83 Other fatigue

== ENCOUNTER 2017-01-26 14:44 | Emergency (ER) | payer OTHER ==
[~2017-01-26] VITALS: Ht 170.2 cm; Wt 81.8 kg
[~2017-01-26 14:44] MED LIST changes: -CARA1TAB6 PO; -PROT1TAB2 PO
[2017-01-26] MEDS ORDERED: NS 1,000 ML IV ONE (15:45)
[2017-01-26] MEDS ORDERED: METOCLOPRAMIDE INJ 10MG/2ML VIAL (J2765) IV ONE (15:45)
[2017-01-26] MEDS ORDERED: PANTOPRAZOLE 40MG INJ (PROTONIX) (C9113) IV ONE (15:45)
[2017-01-26] MEDS ORDERED: SUCRALFATE 1 GM TAB PO ONE (15:45)
[2017-01-26] MEDS ORDERED: ONDANSETRON 4MG/2ML VIAL (J2405) IV ONE (15:45)
[2017-01-26 15:59] LABS: BASO % 0.2 % (0.0-1.0); EOS % 0.9 % (0.0-3.0); LARGE UNSTAINED CELL # 0.1 K/mm3 (0.0-0.4); LARGE UNSTAINED CELL % 1.3 % (0.0-4.0); LYMPH # 0.4 K/mm3 (1.5-4.5); LYMPH % 7.7 % (24.0-44.0); MEAN CORPUSCULAR HEMOGLOBIN 28.2 pg (27.0-33.0); MEAN CORPUSCULAR HGB CONC 33.9 g/dl (32.0-36.5); MEAN CORPUSCULAR VOLUME 83.3 fl (80.0-96.0); MONO # 0.3 K/mm3 (0.0-0.8); MONO % 6.4 % (0.0-5.0); NEUTROPHILS # 4.1 K/mm3 (1.8-7.7); NEUTROPHILS % 83.5 % (36.0-66.0); PLATELET COUNT, AUTOMATED 264 k/mm3 (150-450); RED CELL DISTRIBUTION WIDTH 14.8 % (11.5-14.5); WHITE BLOOD COUNT 4.9 K/mm3 (4.0-10.0)
[2017-01-26 16:00] LABS: INR 0.97
[2017-01-26 16:10] LABS: ALBUMIN 3.8 GM/DL (3.2-5.2); ALBUMIN/GLOBULIN RATIO 1.19 (1.00-1.93); ALKALINE PHOSPHATASE 57 U/L (45-117); ALT/SGPT 20 U/L (12-78); AMYLASE 44 U/L (25-115); ANION GAP 10 MEQ/L (8-16); AST/SGOT 12 U/L (15-37); BILIRUBIN,DIRECT 0.1 MG/DL (0.0-0.2); BILIRUBIN,TOTAL 0.5 MG/DL (0.2-1.0); BLOOD UREA NITROGEN 10 MG/DL (7-18); CALCIUM LEVEL 8.6 MG/DL (8.5-10.1); CARBON DIOXIDE LEVEL 25 MEQ/L (21-32); CHLORIDE LEVEL 108 MEQ/L (98-107); CREATININE FOR GFR 0.68 MG/DL (0.55-1.02); GLOMERULAR FILTRATION RATE > 60.0 (>51); GLUCOSE, FASTING 95 MG/DL (70-105); POTASSIUM SERUM 3.9 MEQ/L (3.5-5.1); SODIUM LEVEL 143 MEQ/L (136-145)
--- NOTE | 2017-01-26 16:29 | REP ---
Clinical: Abdominal pain. Technique: Upright view of the chest with supine and upright views of the abdomen and pelvis. Findings: Frontal upright view of the chest demonstrates no acute cardiopulmonary process or free air below the diaphragm to suspect pneumoperitoneum. Supine and upright views of the abdomen and pelvis demonstrate nonspecific bowel gas pattern without obstruction or perforation. No organomegaly. Skeletal structures normal for age. Impression: Nonspecific bowel gas pattern. Signed by Emmett Kaur MD 01/26/2017 04:20 P
[2017-01-26] MEDS ORDERED: PROT1TAB2 PO (17:09)
[2017-01-26] MEDS ORDERED: CARA1TAB6 PO (17:09)
[2017-01-26] MEDS ORDERED: ACETAMINOPHEN 325 MG TAB PO ONE (17:15)
--- NOTE | 2017-01-26 17:30 | ECGEPIP ---
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
[2017-01-26 17:42] VITALS: BP 139/65
== END 2017-01-26 18:03 | disposition home or self-care (01) ==
LOC: M ED 14:44
DX: K29.00 Acute gastritis without bleeding (principal); E07.9 Disorder of thyroid, unspecified
CPT/HCPCS: 74022; 80048; 80076; 81001; 82150; 82550; 82553; 83690; 85025; 85610; 87086; 93005; 93041; 96361; 96374; 96375; 99284; C9113; J2405; J2765

== ENCOUNTER → 2017-02-12 | Outpatient (REF) | payer OTHER ==
[~2017-02-12] MED LIST changes: +CARA1TAB6 PO; +PROT1TAB2 PO
== END ==
LOC: M LAB REF 10:07
PROVIDERS: ATTEND Family Medicine
DX: N39.0 Urinary tract infection, site not specified (principal)

== ENCOUNTER → 2017-02-21 | Outpatient (REF) | payer OTHER ==
[2017-02-21 15:04] LABS: IMMUNOGLOBULIN G 1210 MG/DL (681-1648); IMMUNOGLOBULIN M 40.1 MG/DL (40-230)
[2017-02-26 00:11] LABS: IgG SERUM (part of Subclasses) 1099 mg/dL (700-1600); IgG Subclass 1 699 mg/dL (248-810); IgG Subclass 2 303 mg/dL (130-555); IgG Subclass 3 82 mg/dL (15-102); IgG Subclass 4 39 mg/dL (2-96)
== END ==
LOC: M SFHCPLAZ 12:02
PROVIDERS: ATTEND Internal Medicine Infectious Disease
DX: B99.9 Unspecified infectious disease (principal); H04.123 Dry eye syndrome of bilateral lacrimal glands

== ENCOUNTER → 2017-06-17 | Outpatient (CLI) | payer OTHER ==
[2017-06-17 08:14] LABS: BASO # 0.1 10^3/uL (0.0-0.2); BASO % 1.4 % (0.0-1.0); EOS # 0.3 10^3/uL (0.0-0.50); EOS % 6.6 % (0.0-3.0); HEMATOCRIT 41.5 % (36.0-47.0); HEMOGLOBIN 13.6 g/dl (12.0-16.0); IMMATURE GRANULOCYTE % 0.2 % (0-0); LYMPH # 1.3 10^3/uL (1.5-4.5); LYMPH % 26.3 % (24.0-44.0); MEAN CORPUSCULAR HEMOGLOBIN 27.2 pg (27.0-33.0); MEAN CORPUSCULAR HGB CONC 32.8 g/dl (32.0-36.5); MONO # 0.5 10^3/uL (0.0-0.8); MONO % 10.9 % (0.0-5.0); NEUTROPHILS # 2.7 10^3/uL (1.8-7.7); NEUTROPHILS % 54.6 % (36.0-66.0); PLATELET COUNT, AUTOMATED 310 10^3/uL (150-450); RED CELL DISTRIBUTION WIDTH 15.4 % (11.5-14.5); WHITE BLOOD COUNT 4.9 10^3/uL (4.0-10.0)
[2017-06-17 08:49] LABS: ALBUMIN 3.8 GM/DL (3.2-5.2); ALBUMIN/GLOBULIN RATIO 1.19 (1.00-1.93); ALKALINE PHOSPHATASE 59 U/L (45-117); ALT/SGPT 18 U/L (12-78); ANION GAP 6 MEQ/L (8-16); AST/SGOT 10 U/L (7-37); BILIRUBIN,TOTAL 0.2 MG/DL (0.2-1.0); BLOOD UREA NITROGEN 14 MG/DL (7-18); CALCIUM LEVEL 8.6 MG/DL (8.5-10.1); CARBON DIOXIDE LEVEL 27 MEQ/L (21-32); CHLORIDE LEVEL 109 MEQ/L (98-107); CREATININE FOR GFR 0.73 MG/DL (0.55-1.30); GLOMERULAR FILTRATION RATE > 60.0 (>51); GLUCOSE, FASTING 98 MG/DL (70-100); POTASSIUM SERUM 4.4 MEQ/L (3.5-5.1); SODIUM LEVEL 142 MEQ/L (136-145); THYROID STIMULATING HORMONE 0.293 uIU/ML (0.358-3.740)
[2017-06-19 00:06] LABS: EBV VIRAL CAPSID AG IgM <36.0 U/mL (0.0-35.9)
== END ==
LOC: M LAB 07:32
DX: R53.83 Other fatigue (principal)
CPT/HCPCS: 84443

== ENCOUNTER → 2017-09-08 | Outpatient (REF) | payer OTHER | LOC: M WUC 09:05 | DX: J02.9 Acute pharyngitis, unspecified (principal) ==

== ENCOUNTER → 2017-12-13 | Outpatient (CLI) | payer OTHER ==
[2017-12-13 08:03] LABS: HEMATOCRIT 41.5 % (36.0-47.0); HEMOGLOBIN 13.4 g/dl (12.0-15.5); MEAN CORPUSCULAR HGB CONC 32.3 g/dl (32.0-36.5); MEAN CORPUSCULAR VOLUME 86.6 fl (80.0-96.0); PLATELET COUNT, AUTOMATED 276 10^3/uL (150-450); RED BLOOD COUNT 4.79 10^6/uL (4.00-5.40); RED CELL DISTRIBUTION WIDTH 15.6 % (11.5-14.5); WHITE BLOOD COUNT 4.9 10^3/uL (4.0-10.0)
[2017-12-13 08:26] LABS: ESTIMATED AVERAGE GLUCOSE 108 MG/DL (60-110); HEMOGLOBIN A1c 5.4 %
[2017-12-13 08:35] LABS: ALBUMIN 3.7 GM/DL (3.2-5.2); ALBUMIN/GLOBULIN RATIO 1.19 (1.00-1.93); ALKALINE PHOSPHATASE 51 U/L (45-117); ALT/SGPT 25 U/L (12-78); ANION GAP 5 MEQ/L (8-16); AST/SGOT 14 U/L (7-37); BILIRUBIN,TOTAL 0.4 MG/DL (0.2-1.0); BLOOD UREA NITROGEN 12 MG/DL (7-18); CALCIUM LEVEL 8.8 MG/DL (8.5-10.1); CARBON DIOXIDE LEVEL 30 MEQ/L (21-32); CHLORIDE LEVEL 110 MEQ/L (98-107); CHOLESTEROL LEVEL 211 MG/DL (<200); CHOLESTEROL RISK RATIO 2.813 (<5); CREATININE FOR GFR 0.77 MG/DL (0.55-1.30); GLOMERULAR FILTRATION RATE > 60.0 (>51); GLUCOSE, FASTING 91 MG/DL (70-100); HDL CHOLESTEROL 75 MG/DL (>40); IRON (FE) 130 UG/DL (50-170); NON-HDL-C 136 MG/DL; PERCENT SATURATION 41.7 % (13.2-45.0); POTASSIUM SERUM 4.4 MEQ/L (3.5-5.1); SODIUM LEVEL 145 MEQ/L (136-145); THYROXINE (T4) 9.9 UG/DL (4.5-12.0); TOTAL IRON BINDING CAPACITY 312 UG/DL (250-450); TOTAL PROTEIN 6.8 GM/DL (6.4-8.2); TRIGLYCERIDES LEVEL 65 MG/DL (<150)
[2017-12-13 09:06] LABS: TOTAL 25(OH) VITAMIN D 19.6 NG/ML (30.0-100.0)
[2017-12-13 09:07] LABS: TOTAL T3 98.3 NG/DL (60.0-181.0); VITAMIN B12 LEVEL 333 PG/ML (247-911)
== END ==
LOC: M LAB 07:03
DX: D64.9 Anemia, unspecified (principal)
CPT/HCPCS: 83550

== ENCOUNTER → 2018-06-05 | Outpatient (CLI) | payer OTHER ==
[2018-06-05 08:36] LABS: BASO # 0.1 10^3/uL (0.0-0.2); EOS # 0.3 10^3/uL (0.0-0.50); EOS % 6.7 % (0.0-3.0); HEMATOCRIT 41.8 % (36.0-47.0); HEMOGLOBIN 13.6 g/dl (12.0-15.5); LYMPH # 1.5 10^3/uL (1.5-4.5); LYMPH % 29.6 % (24.0-44.0); MEAN CORPUSCULAR HGB CONC 32.5 g/dl (32.0-36.5); MONO # 0.6 10^3/uL (0.0-0.8); NEUTROPHILS # 2.6 10^3/uL (1.8-7.7); NEUTROPHILS % 51.5 % (36.0-66.0); PLATELET COUNT, AUTOMATED 326 10^3/uL (150-450); RED BLOOD COUNT 4.86 10^6/uL (4.00-5.40); WHITE BLOOD COUNT 5.1 10^3/uL (4.0-10.0)
[2018-06-05 08:59] LABS: HEMOGLOBIN A1c 5.6 %
[2018-06-05 09:16] LABS: ALBUMIN 3.9 GM/DL (3.2-5.2); ALT/SGPT 27 U/L (12-78); BILIRUBIN,TOTAL 0.4 MG/DL (0.2-1.0); BLOOD UREA NITROGEN 13 MG/DL (7-18); CALCIUM LEVEL 9.1 MG/DL (8.5-10.1); CARBON DIOXIDE LEVEL 28 MEQ/L (21-32); CHLORIDE LEVEL 106 MEQ/L (98-107); CHOLESTEROL LEVEL 263 MG/DL (<200); CHOLESTEROL RISK RATIO 3.287 (<5); CREATININE FOR GFR 0.76 MG/DL (0.55-1.30); GLOMERULAR FILTRATION RATE > 60.0 (>51); GLUCOSE, FASTING 97 MG/DL (70-100); HDL CHOLESTEROL 80 MG/DL (>40); LDL CHOLESTEROL 171 MG/DL (<100); NON-HDL-C 183 MG/DL; POTASSIUM SERUM 4.4 MEQ/L (3.5-5.1); RHEUMATOID FACTOR QUANT < 10.0 IU/ML (<15.0); SODIUM LEVEL 142 MEQ/L (136-145); THYROXINE (T4) 8.8 UG/DL (4.5-12.0); TOTAL PROTEIN 6.9 GM/DL (6.4-8.2); TRIGLYCERIDES LEVEL 60 MG/DL (<150)
[2018-06-05 09:29] LABS: TOTAL 25(OH) VITAMIN D 26.6 NG/ML (30.0-100.0)
[2018-06-05 09:47] LABS: ERYTHROCYTE SEDIMENTATION RATE 10 mm/hr (0-30)
--- NOTE | 2018-06-05 19:51 | REP ---
Clinical: Right hip pain. Sciatica. Technique: Frontal view of the pelvis with neutral and frog lateral views of the right hip. Findings: Osseous structures and joint spaces are intact and normal. Hip joints appear symmetric on frontal pelvic radiograph. No acute fracture dislocation. No evidence for healed injury. No significant degenerative or congenital abnormalities are appreciated. Surrounding soft tissues are unremarkable. Impression: Normal pelvis and right hip series. Electronically Signed by Emmett Kaur MD 06/05/2018 07:43 P
--- NOTE | 2018-06-05 19:54 | REP ---
Clinical: Back and hip pain with sciatica . Technique: AP, lateral, bilateral oblique, and coned-down views. Findings: Alignment and lordosis is maintained. The vertebral bodies including transverse process and spinous processes are intact and without evidence for acute fracture / compression injury or subluxation. No evidence for spondylolysis or spondylolisthesis. Mild degenerative disc disease includes osteophytosis and endplate sclerosis at L2-3 and L3-4. Hypertrophic facet changes at L5-L1 are also noted. Impression: Mild multilevel degenerative changes. Electronically Signed by Emmett Kaur MD 06/05/2018 07:45 P
== END ==
LOC: M LAB 07:54
PROVIDERS: ATTEND Family Medicine
DX: E03.9 Hypothyroidism, unspecified (principal); D64.9 Anemia, unspecified; M54.30 Sciatica, unspecified side; M19.90 Unspecified osteoarthritis, unspecified site

== ENCOUNTER 2018-06-08 16:02 | Emergency (ER) | payer OTHER ==
[~2018-06-08] VITALS: Ht 170.2 cm; Wt 77.3 kg
[2018-06-08] MEDS ORDERED: LEVO88TA3 PO (16:06)
[2018-06-08 17:04] VITALS: BP 143/67
[2018-06-08 17:36] LABS: MONO REFLEX EBV COMP NEGATIVE (NEGATIVE)
[2018-06-08 17:59] LABS: INFLUENZA A AMPLIFICATION NEGATIVE (NEGATIVE); INFLUENZA B AMPLIFICATION NEGATIVE (NEGATIVE)
[2018-06-11 00:11] LABS: EBV VIRAL CAPSID AG IgM <36.0 U/mL (0.0-35.9)
== END 2018-06-08 18:27 | disposition home or self-care (01) ==
LOC: M ED 16:02
DX: J02.8 Acute pharyngitis due to other specified organisms (principal)

== ENCOUNTER → 2018-07-28 | Outpatient (CLI) | payer OTHER ==
[~2018-07-28] MED LIST changes: +LEVO88TA3 PO
[2018-07-28 08:22] LABS: HEMATOCRIT 38.6 % (36.0-47.0); HEMOGLOBIN 12.2 g/dl (12.0-15.5); MEAN CORPUSCULAR HEMOGLOBIN 27.6 pg (27.0-33.0); MEAN CORPUSCULAR HGB CONC 31.6 g/dl (32.0-36.5); MEAN CORPUSCULAR VOLUME 87.3 fl (80.0-96.0); PLATELET COUNT, AUTOMATED 328 10^3/uL (150-450); RED BLOOD COUNT 4.42 10^6/uL (4.00-5.40); WHITE BLOOD COUNT 4.7 10^3/uL (4.0-10.0)
--- NOTE | 2018-07-28 08:27 | REP ---
Clinical: COPD . Comparison: 01/21/2017 . Technique: PA and lateral. Findings: The mediastinum and cardiac silhouette are normal. The lung membreno are clear and without acute consolidation, effusion, or pneumothorax. The skeletal structures are intact and normal. Impression: 1. No acute cardiopulmonary process. Electronically Signed by Emmett Kaur MD 07/28/2018 08:18 A
[2018-07-28 08:59] LABS: ALBUMIN 3.4 GM/DL (3.2-5.2); ALT/SGPT 17 U/L (12-78); BILIRUBIN,TOTAL 0.3 MG/DL (0.2-1.0); BLOOD UREA NITROGEN 15 MG/DL (7-18); CALCIUM LEVEL 8.4 MG/DL (8.5-10.1); CARBON DIOXIDE LEVEL 29 MEQ/L (21-32); CHLORIDE LEVEL 106 MEQ/L (98-107); CHOLESTEROL LEVEL 188 MG/DL (<200); CHOLESTEROL RISK RATIO 3.298 (<5); CREATININE FOR GFR 0.66 MG/DL (0.55-1.30); GLOMERULAR FILTRATION RATE > 60.0 (>51); GLUCOSE, FASTING 88 MG/DL (70-100); HDL CHOLESTEROL 57 MG/DL (>40); LDL CHOLESTEROL 117 MG/DL (<100); NON-HDL-C 131 MG/DL; SODIUM LEVEL 141 MEQ/L (136-145); TOTAL PROTEIN 6.5 GM/DL (6.4-8.2); TRIGLYCERIDES LEVEL 69 MG/DL (<150)
== END ==
LOC: M LAB 07:09
PROVIDERS: ATTEND Family Medicine
DX: J44.9 Chronic obstructive pulmonary disease, unspecified (principal)

== ENCOUNTER → 2018-08-05 | Outpatient (CLI) | payer OTHER ==
[2018-08-05 09:14] LABS: IMMUNOGLOBULIN M 23.5 MG/DL (40-230)
== END ==
LOC: M LAB 07:56
PROVIDERS: ATTEND Internal Medicine Pulmonary Disease
DX: R05 Cough (principal)

== ENCOUNTER → 2018-08-13 | Outpatient (REF) | payer OTHER ==
[2018-08-13 19:45] LABS: BASO % 0.8 % (0.0-1.0); EOS # 0.4 10^3/uL (0.0-0.50); HEMATOCRIT 42.6 % (36.0-47.0); HEMOGLOBIN 13.3 g/dl (12.0-15.5); LYMPH # 0.6 10^3/uL (1.5-4.5); MEAN CORPUSCULAR HEMOGLOBIN 27.2 pg (27.0-33.0); MEAN CORPUSCULAR HGB CONC 31.2 g/dl (32.0-36.5); MEAN CORPUSCULAR VOLUME 87.1 fl (80.0-96.0); MONO # 0.6 10^3/uL (0.0-0.8); MONO % 12.2 % (0.0-5.0); NEUTROPHILS # 3.5 10^3/uL (1.8-7.7); NEUTROPHILS % 67.8 % (36.0-66.0); PLATELET COUNT, AUTOMATED 273 10^3/uL (150-450); RED BLOOD COUNT 4.89 10^6/uL (4.00-5.40); WHITE BLOOD COUNT 5.2 10^3/uL (4.0-10.0)
== END ==
LOC: M LABDRWAD 19:12 → M LAB REF 19:12
PROVIDERS: ATTEND Physician Assistant
DX: R53.83 Other fatigue (principal); J02.9 Acute pharyngitis, unspecified

== ENCOUNTER → 2018-09-09 | Outpatient (REF) | payer OTHER ==
[2018-09-09 15:54] LABS: BASO % 0.6 % (0.0-1.0); EOS # 0.4 10^3/uL (0.0-0.50); EOS % 6.8 % (0.0-3.0); HEMATOCRIT 40.8 % (36.0-47.0); LYMPH # 1.2 10^3/uL (1.5-4.5); LYMPH % 21.5 % (24.0-44.0); MEAN CORPUSCULAR HEMOGLOBIN 27.3 pg (27.0-33.0); MEAN CORPUSCULAR HGB CONC 31.9 g/dl (32.0-36.5); MEAN CORPUSCULAR VOLUME 85.5 fl (80.0-96.0); MONO # 0.5 10^3/uL (0.0-0.8); MONO % 9.7 % (0.0-5.0); NEUTROPHILS # 3.3 10^3/uL (1.8-7.7); PLATELET COUNT, AUTOMATED 308 10^3/uL (150-450); RED BLOOD COUNT 4.77 10^6/uL (4.00-5.40); WHITE BLOOD COUNT 5.4 10^3/uL (4.0-10.0)
[2018-09-09 16:36] LABS: ERYTHROCYTE SEDIMENTATION RATE 11 mm/hr (0-30)
[2018-09-09 17:00] LABS: C REACTIVE PROTEIN QUANTITATIV < 0.30 MG/DL (0.00-0.30); IMMUNOGLOBULIN E 6.8 IU/ML (<100); IMMUNOGLOBULIN M 28.4 MG/DL (40-230)
== END ==
LOC: M SFHCPLAZ 14:21
PROVIDERS: ATTEND Internal Medicine Infectious Disease
DX: D80.4 Selective deficiency of immunoglobulin M [IgM] (principal); B27.90 Infectious mononucleosis, unspecified without complication

== ENCOUNTER → 2018-11-10 | Outpatient (CLI) | payer OTHER ==
[2018-11-10 08:13] LABS: HEMATOCRIT 41.9 % (36.0-47.0); HEMOGLOBIN 13.2 g/dl (12.0-15.5); MEAN CORPUSCULAR HEMOGLOBIN 27.1 pg (27.0-33.0); MEAN CORPUSCULAR HGB CONC 31.5 g/dl (32.0-36.5); PLATELET COUNT, AUTOMATED 281 10^3/uL (150-450); RED BLOOD COUNT 4.87 10^6/uL (4.00-5.40); WHITE BLOOD COUNT 5.1 10^3/uL (4.0-10.0)
[2018-11-10 08:30] LABS: INR 1.13; PROTHROMBIN TIME 14.2 SECONDS (11.8-14.0)
[2018-11-10 08:36] LABS: APPEARANCE, URINE CLEAR (CLEAR); BACTERIA, URINE AUTO NEGATIVE (NEGATIVE); BILIRUBIN, URINE AUTO NEGATIVE (NEGATIVE); BLOOD, URINE BLOOD 1+ (NEGATIVE); COLOR, URINE YELLOW (YELLOW); GLUCOSE, URINE (UA) AUTO NEGATIVE (NEGATIVE); KETONE, URINE AUTO TRACE mg/dL (NEGATIVE); LEUKOCYTE ESTERASE, URINE AUTO NEGATIVE (NEGATIVE); MUCUS, URINE MODERATE (NEGATIVE); NITRITE, URINE AUTO NEGATIVE (NEGATIVE); PROTEIN, URINE AUTO NEGATIVE (NEGATIVE); RBC, URINE AUTO 2 /HPF (0-3); SPECIFIC GRAVITY URINE AUTO 1.023 (1.002-1.035); SQUAMOUS EPITHELIAL CELL UR AU 0 /HPF (0-6); UROBILINOGEN, URINE AUTO 0.2 mg/dL (0.0-2.0); WBC, URINE AUTO 0 /HPF (0-3)
[2018-11-10 08:40] LABS: ALBUMIN 3.5 GM/DL (3.2-5.2); ALT/SGPT 18 U/L (12-78); BILIRUBIN,TOTAL 0.4 MG/DL (0.2-1.0); BLOOD UREA NITROGEN 9 MG/DL (7-18); CALCIUM LEVEL 9.2 MG/DL (8.5-10.1); CARBON DIOXIDE LEVEL 29 MEQ/L (21-32); CHLORIDE LEVEL 108 MEQ/L (98-107); CHOLESTEROL LEVEL 200 MG/DL (<200); CHOLESTEROL RISK RATIO 2.469 (<5); CREATININE FOR GFR 0.72 MG/DL (0.55-1.30); GLOMERULAR FILTRATION RATE > 60.0 (>51); GLUCOSE, FASTING 90 MG/DL (70-100); HDL CHOLESTEROL 81 MG/DL (>40); LDL CHOLESTEROL 106 MG/DL (<100); NON-HDL-C 119 MG/DL; POTASSIUM SERUM 4.3 MEQ/L (3.5-5.1); SODIUM LEVEL 141 MEQ/L (136-145); TOTAL PROTEIN 7.3 GM/DL (6.4-8.2); TRIGLYCERIDES LEVEL 67 MG/DL (<150)
[2018-11-10 08:41] LABS: IRON (FE) 83 UG/DL (50-170); MAGNESIUM LEVEL 2.1 MG/DL (1.8-2.4); PERCENT SATURATION 27.4 % (13.2-45.0); THYROXINE (T4) 10.5 UG/DL (4.5-12.0); TOTAL IRON BINDING CAPACITY 303 UG/DL (250-450)
[2018-11-10 09:55] LABS: TOTAL 25(OH) VITAMIN D 16.3 NG/ML (30.0-100.0); TOTAL T3 91.9 NG/DL (60.0-181.0)
== END ==
LOC: M LAB 07:25 → M RAD 07:25
PROVIDERS: ATTEND Family Medicine
DX: Z01.818 Encounter for other preprocedural examination (principal); R53.83 Other fatigue; E03.9 Hypothyroidism, unspecified

== ENCOUNTER → 2019-07-25 | Outpatient (REF) | payer OTHER ==
[2019-07-25 22:31] LABS: INFLUENZA A AMPLIFICATION NEGATIVE (NEGATIVE); INFLUENZA B AMPLIFICATION NEGATIVE (NEGATIVE)
== END ==
LOC: M LAB REF 21:50
PROVIDERS: ATTEND Physician Assistant
DX: R50.9 Fever, unspecified (principal)

== ENCOUNTER → 2020-03-08 | Outpatient (CLI) | payer OTHER ==
[2020-03-08 08:19] LABS: HEMATOCRIT 41.9 % (36.0-47.0); HEMOGLOBIN 13.1 g/dl (12.0-15.5); MEAN CORPUSCULAR HEMOGLOBIN 27.2 pg (27.0-33.0); MEAN CORPUSCULAR HGB CONC 31.3 g/dl (32.0-36.5); MEAN CORPUSCULAR VOLUME 87.1 fl (80.0-96.0); PLATELET COUNT, AUTOMATED 310 10^3/uL (150-450); RED BLOOD COUNT 4.81 10^6/uL (4.00-5.40); WHITE BLOOD COUNT 4.7 10^3/uL (4.0-10.0)
[2020-03-08 08:54] LABS: ALBUMIN 3.8 GM/DL (3.2-5.2); ALT/SGPT 29 U/L (12-78); BILIRUBIN,TOTAL 0.5 MG/DL (0.2-1.0); BLOOD UREA NITROGEN 11 MG/DL (7-18); CALCIUM LEVEL 8.9 MG/DL (8.5-10.1); CARBON DIOXIDE LEVEL 28 MEQ/L (21-32); CHLORIDE LEVEL 107 MEQ/L (98-107); CHOLESTEROL LEVEL 230 MG/DL (<200); CHOLESTEROL RISK RATIO 2.875 (<5); GLOMERULAR FILTRATION RATE > 60.0 (>51); GLUCOSE, FASTING 90 MG/DL (70-100); HDL CHOLESTEROL 80 MG/DL (>40); LDL CHOLESTEROL 139 MG/DL (<100); NON-HDL-C 150 MG/DL; POTASSIUM SERUM 4.3 MEQ/L (3.5-5.1); SODIUM LEVEL 141 MEQ/L (136-145); TOTAL PROTEIN 6.9 GM/DL (6.4-8.2); TRIGLYCERIDES LEVEL 55 MG/DL (<150)
[2020-03-08 09:50] LABS: MONO SCRN NEGATIVE (NEGATIVE)
[2020-03-08 09:57] LABS: TOTAL 25(OH) VITAMIN D 41.3 NG/ML (30.0-100.0)
[2020-03-09 17:08] LABS: CYTOMEGALOVIRUS IgG ANTIBODY <0.60 U/mL (0.00-0.59); EBV VIRAL CAPSID AG IgM <36.0 U/mL (0.0-35.9)
== END ==
LOC: M LAB 07:28
PROVIDERS: ATTEND Family Medicine
DX: D64.9 Anemia, unspecified (principal); E03.9 Hypothyroidism, unspecified; R53.83 Other fatigue

== ENCOUNTER → 2020-03-24 | Outpatient (CLI) | payer OTHER ==
--- NOTE | 2020-03-24 11:44 | REPMRS ---
Patient History The patient states she had a clinical breast exam in March 2020. Patient is postmenopausal. No known family history of cancer. No Hormone Replacement Therapy Diagnostic Bilateral Mammo: March 24, 2020 - Exam #: [id number] Bilateral CC and MLO view(s) were taken. Technologist: RT Lurdes Prior study comparison: November 18, 2013, digital woman screen mammo performed at [facility] [place]. FINDINGS: There are scattered fibroglandular densities. The Volpara volumetric breast density category is:B. There has been no change in the appearance of the mammogram from the prior studies. There is a mild amount of scattered fibroglandular density which is fairly symmetric. There is no interval development of dominant mass, architectural distortion, or grouped microcalcification suggestive of malignancy. 3-D tomosynthesis shows no additional findings. Assessment: BI-RADS/ACR category 1 mammogram. Negative Mammogram. Recommendation Routine screening mammogram of both breasts in 1 year (for women over age 40). This patient's Lifetime Breast Cancer Risk is estimated at 8.4 %. This mammogram was interpreted with the aid of an FDA-approved computer-aided dectection system. Electronically Signed By: Dc Rowe MD 03/24/20 [id number]
== END ==
LOC: M WHC 10:35
PROVIDERS: ATTEND Nurse Practitioner Family
DX: N64.4 Mastodynia (principal)
CPT/HCPCS: 77066; G0279

== ENCOUNTER → 2020-07-12 | Outpatient (CLI) | payer OTHER ==
--- NOTE | 2020-07-12 09:07 | REP ---
INDICATION: STRAIN OF MUSC/TEND THE ROTATOR CUFF OF LEFT SHOULDER,LAB1ST COMPARISON: None. TECHNIQUE: Gupta scale and color Doppler evaluation left upper extremity using linear high frequency transducer. FINDINGS: Ultrasound examination of the left upper extremity demonstrates normal compressibility, flow and wave patterns. There is no evidence for deep venous thrombosis. IMPRESSION: No evidence for deep venous thrombosis. <Electronically signed by Emmett Kaur > 07/12/20 0903
[2020-07-12 09:24] LABS: BASO # 0.1 10^3/uL (0.0-0.2); EOS # 0.3 10^3/uL (0.0-0.5); EOS % 6.3 % (0.0-3.0); HEMATOCRIT 41.5 % (36.0-47.0); HEMOGLOBIN 13.1 g/dl (12.0-15.5); LYMPH % 19.2 % (24.0-44.0); MEAN CORPUSCULAR HEMOGLOBIN 27.6 pg (27.0-33.0); MEAN CORPUSCULAR HGB CONC 31.6 g/dl (32.0-36.5); MEAN CORPUSCULAR VOLUME 87.6 fl (80.0-96.0); MONO # 0.6 10^3/uL (0.0-0.8); MONO % 10.5 % (2.0-8.0); NEUTROPHILS # 3.3 10^3/uL (1.5-8.5); NEUTROPHILS % 62.8 % (36.0-66.0); PLATELET COUNT, AUTOMATED 317 10^3/uL (150-450); RED BLOOD COUNT 4.74 10^6/uL (4.00-5.40); WHITE BLOOD COUNT 5.3 10^3/uL (4.0-10.0)
[2020-07-12 10:33] LABS: ERYTHROCYTE SEDIMENTATION RATE 9 mm/hr (0-30)
== END ==
LOC: M LAB 08:14
PROVIDERS: ATTEND Physician Assistant
DX: S46.012A Strain of muscle(s) and tendon(s) of the rotator cuff of left shoulder, initial encounter (principal); X58.XXXA Exposure to other specified factors, initial encounter; Y92.89 Other specified places as the place of occurrence of the external cause; Y93.89 Activity, other specified; Y99.8 Other external cause status

== ENCOUNTER → 2020-10-12 | Outpatient (REF) | payer OTHER | LOC: M LAB REF 16:46 | PROVIDERS: ATTEND Physician Assistant | DX: J02.9 Acute pharyngitis, unspecified (principal) ==

== ENCOUNTER → 2021-05-12 | Outpatient (REF) | payer OTHER ==
[2021-05-12 14:03] LABS: INFLUENZA A AMPLIFICATION NEGATIVE (NEGATIVE)
[2021-05-12 14:04] LABS: INFLUENZA B AMPLIFICATION NEGATIVE (NEGATIVE)
== END ==
LOC: M LAB REF 13:09
PROVIDERS: ATTEND Physician Assistant Medical
DX: R50.9 Fever, unspecified (principal)

== ENCOUNTER → 2021-08-09 | Outpatient (CLI) | payer OTHER ==
[2021-08-09 09:11] LABS: HEMATOCRIT 41.8 % (36.0-47.0); HEMOGLOBIN 13.6 g/dl (12.0-15.5); MEAN CORPUSCULAR HGB CONC 32.5 g/dl (32.0-36.5); MEAN CORPUSCULAR VOLUME 86.2 fl (80.0-96.0); PLATELET COUNT, AUTOMATED 296 10^3/uL (150-450); RED BLOOD COUNT 4.85 10^6/uL (4.00-5.40); WHITE BLOOD COUNT 5.7 10^3/uL (4.0-10.0)
[2021-08-09 09:46] LABS: ALBUMIN 3.7 GM/DL (3.2-5.2); ALT/SGPT 25 U/L (12-78); BILIRUBIN,TOTAL 0.3 MG/DL (0.2-1.0); BLOOD UREA NITROGEN 16 MG/DL (7-18); CALCIUM LEVEL 9.3 MG/DL (8.8-10.2); CARBON DIOXIDE LEVEL 29 MEQ/L (21-32); CHLORIDE LEVEL 112 MEQ/L (98-107); CHOLESTEROL LEVEL 221 MG/DL (<200); CHOLESTEROL RISK RATIO 2.511 (<5); CREATININE FOR GFR 0.78 MG/DL (0.55-1.30); FREE T3 2.3 PG/ML (2.2-4.0); FREE T4 0.93 NG/DL (0.76-1.46); GLOMERULAR FILTRATION RATE > 60.0 (>45); GLUCOSE, FASTING 97 MG/DL (70-100); HDL CHOLESTEROL 88 MG/DL (>40); IRON (FE) 80 UG/DL (50-170); LDL CHOLESTEROL 122 MG/DL (<100); NON-HDL-C 133 MG/DL; PERCENT SATURATION 25.6 % (13.2-45.0); SODIUM LEVEL 145 MEQ/L (136-145); TOTAL IRON BINDING CAPACITY 313 UG/DL (250-450); TOTAL PROTEIN 6.7 GM/DL (6.4-8.2); TRIGLYCERIDES LEVEL 53 MG/DL (<150)
[2021-08-09 09:48] LABS: TOTAL 25(OH) VITAMIN D 24.6 NG/ML (30.0-100.0); VITAMIN B12 LEVEL 398 PG/ML (247-911)
[2021-08-09 10:19] LABS: HEMOGLOBIN A1c 5.3 %
== END ==
LOC: M LAB 08:38
PROVIDERS: ATTEND Family Medicine
DX: R53.83 Other fatigue (principal); I10 Essential (primary) hypertension; Z13.29 Encounter for screening for other suspected endocrine disorder

== ENCOUNTER → 2021-09-15 | Outpatient (CLI) | payer OTHER | LOC: M RAD 08:45 | PROVIDERS: ATTEND Family Medicine | DX: M54.50 Low back pain, unspecified (principal); R07.82 Intercostal pain ==

== ENCOUNTER → 2022-01-09 | Outpatient (REF) | payer OTHER | LOC: M PLALAB 11:54 | PROVIDERS: ATTEND Specialist | DX: Z01.419 Encounter for gynecological examination (general) (routine) without abnormal findings (principal) ==

== ENCOUNTER → 2022-06-07 | Outpatient (CLI) | payer OTHER ==
[2022-06-07 07:53] LABS: BASO % 0.6 % (0.0-1.0); EOS # 0.3 10^3/uL (0.0-0.5); EOS % 6.1 % (0.0-3.0); HEMATOCRIT 40.3 % (36.0-47.0); HEMOGLOBIN 12.9 g/dl (12.0-15.5); LYMPH # 1.4 10^3/uL (1.5-5.0); LYMPH % 28.9 % (24.0-44.0); MEAN CORPUSCULAR HEMOGLOBIN 28.1 pg (27.0-33.0); MEAN CORPUSCULAR VOLUME 87.8 fl (80.0-96.0); MONO # 0.5 10^3/uL (0.0-0.8); MONO % 10.5 % (2.0-8.0); NEUTROPHILS # 2.7 10^3/uL (1.5-8.5); NEUTROPHILS % 53.7 % (36.0-66.0); PLATELET COUNT, AUTOMATED 323 10^3/uL (150-450); RED BLOOD COUNT 4.59 10^6/uL (4.00-5.40)
[2022-06-07 08:48] LABS: MAGNESIUM LEVEL 1.9 MG/DL (1.8-2.4)
[2022-06-07 08:52] LABS: FREE T4 1.07 NG/DL (0.89-1.76); THYROID STIMULATING HORMONE 3.697 uIU/ML (0.55-4.78); TOTAL 25(OH) VITAMIN D 26.5 NG/ML (20.0-100.0)
== END ==
LOC: M LAB 07:17
PROVIDERS: ATTEND Internal Medicine Gastroenterology
DX: K59.00 Constipation, unspecified (principal); K62.5 Hemorrhage of anus and rectum; R10.13 Epigastric pain; R63.4 Abnormal weight loss; E55.9 Vitamin D deficiency, unspecified

== ENCOUNTER → 2022-10-30 | Outpatient (CLI) | payer OTHER ==
[2022-10-30 10:57] LABS: HEMATOCRIT 39.6 % (36.0-47.0); HEMOGLOBIN 12.5 g/dl (12.0-15.5); MEAN CORPUSCULAR HEMOGLOBIN 28.2 pg (27.0-33.0); MEAN CORPUSCULAR HGB CONC 31.6 g/dl (32.0-36.5); MEAN CORPUSCULAR VOLUME 89.4 fl (80.0-96.0); PLATELET COUNT, AUTOMATED 320 10^3/uL (150-450); RED BLOOD COUNT 4.43 10^6/uL (4.00-5.40); WHITE BLOOD COUNT 6.5 10^3/uL (4.0-10.0)
[2022-10-30 11:18] LABS: HEMOGLOBIN A1c 5.1 % (4.0-6.0)
[2022-10-30 11:24] LABS: ALBUMIN 3.5 G/DL (3.2-5.2); ALKALINE PHOSPHATASE 50 U/L (46-116); ALT/SGPT 23 U/L (7.0-40); AST/SGOT 13 U/L (<34); BILIRUBIN,TOTAL 0.4 MG/DL (0.3-1.2); BLOOD UREA NITROGEN 11 MG/DL (9-23); CALCIUM LEVEL 8.7 MG/DL (8.3-10.6); CARBON DIOXIDE LEVEL 30 MMOL/L (20-31); CHLORIDE LEVEL 107 MMOL/L (98-107); CHOLESTEROL LEVEL 219 MG/DL (<200); CREATININE FOR GFR 0.65 MG/DL (0.55-1.30); GLOMERULAR FILTRATION RATE > 60.0 (>45); GLUCOSE, FASTING 95 MG/DL (74-106); HDL CHOLESTEROL 95.2 MG/DL (>40); IRON (FE) 65 UG/DL (50-170); LDL CHOLESTEROL 113.4 MG/DL (<100); NON-HDL-C 123.8 MG/DL; PERCENT SATURATION 19.2 % (13.2-45.0); POTASSIUM SERUM 4.5 MMOL/L (3.5-5.1); SODIUM LEVEL 143 MMOL/L (136-145); TOTAL IRON BINDING CAPACITY 339 UG/DL (250-425); TOTAL PROTEIN 6.3 G/DL (5.7-8.2); TRIGLYCERIDES LEVEL 52 MG/DL (<150)
[2022-10-30 11:27] LABS: IMMUNOGLOBULIN G 967 MG/DL (650-1600); IMMUNOGLOBULIN M 39.9 MG/DL (50-300)
[2022-10-30 11:29] LABS: FREE T4 0.99 NG/DL (0.89-1.76); THYROID STIMULATING HORMONE 16.159 uIU/ML (0.55-4.78); TOTAL T3 103.7 NG/DL (60.0-181.0)
[2022-10-30 11:30] LABS: TOTAL 25(OH) VITAMIN D 27.6 NG/ML (20.0-100.0)
[2022-10-30 11:37] LABS: MONO SCRN NEGATIVE (NEGATIVE)
== END ==
LOC: M LAB 10:19
PROVIDERS: ATTEND Family Medicine
DX: D64.9 Anemia, unspecified (principal); R53.83 Other fatigue; E03.9 Hypothyroidism, unspecified

== ENCOUNTER → 2022-10-31 | Outpatient (REF) | payer OTHER ==
[2022-11-02 16:09] LABS: EBV VIRAL CAPSID AG IgM <36.0 U/mL (0.0-35.9)
== END ==
LOC: M LAB REF 16:07
PROVIDERS: ATTEND Physician Assistant
DX: J02.9 Acute pharyngitis, unspecified (principal)

== ENCOUNTER → 2023-01-24 | Outpatient (CLI) | payer OTHER | LOC: M WHC 08:20 | PROVIDERS: ATTEND Nurse Practitioner Family | DX: N63.20 Unspecified lump in the left breast, unspecified quadrant (principal) | CPT/HCPCS: 76642; 77066; G0279 ==

== ENCOUNTER → 2023-06-06 | Outpatient (CLI) | payer OTHER ==
[2023-06-06 12:31] LABS: HEMATOCRIT 43.5 % (36.0-47.0); HEMOGLOBIN 13.8 g/dl (12.0-15.5); MEAN CORPUSCULAR HEMOGLOBIN 27.9 pg (27.0-33.0); MEAN CORPUSCULAR HGB CONC 31.7 g/dl (32.0-36.5); MEAN CORPUSCULAR VOLUME 88.1 fl (80.0-96.0); PLATELET COUNT, AUTOMATED 340 10^3/uL (150-450); RED BLOOD COUNT 4.94 10^6/uL (4.00-5.40); WHITE BLOOD COUNT 6.6 10^3/uL (4.0-10.0)
[2023-06-06 12:55] LABS: ERYTHROCYTE SEDIMENTATION RATE 24 mm/hr (0-30)
[2023-06-06 13:20] LABS: C REACTIVE PROTEIN QUANTITATIV < 0.40 MG/DL (<1.0)
[2023-06-06 13:22] LABS: ALKALINE PHOSPHATASE 46 U/L (46-116); ALT/SGPT 15 U/L (7.0-40); AST/SGOT 15 U/L (<34); BILIRUBIN,TOTAL 0.3 MG/DL (0.3-1.2); BLOOD UREA NITROGEN 14 MG/DL (9-23); CALCIUM LEVEL 9.2 MG/DL (8.3-10.6); CARBON DIOXIDE LEVEL 26 MMOL/L (20-31); CHLORIDE LEVEL 109 MMOL/L (98-107); CHOLESTEROL LEVEL 212 MG/DL (<200); CHOLESTEROL RISK RATIO 2.72 (<5); CREATININE FOR GFR 0.63 MG/DL (0.55-1.30); GLOMERULAR FILTRATION RATE > 60.0 (>45); GLUCOSE, FASTING 94 MG/DL (74-106); HDL CHOLESTEROL 77.9 MG/DL (>40); IRON (FE) 88 UG/DL (50-170); LDL CHOLESTEROL 118.1 MG/DL (<100); NON-HDL-C 134.1 MG/DL; PERCENT SATURATION 26.2 % (13.2-45.0); POTASSIUM SERUM 4.5 MMOL/L (3.5-5.1); SODIUM LEVEL 141 MMOL/L (136-145); TOTAL IRON BINDING CAPACITY 336 UG/DL (250-425); TOTAL PROTEIN 6.9 G/DL (5.7-8.2); TRIGLYCERIDES LEVEL 80 MG/DL (<150)
[2023-06-06 13:23] LABS: THYROID STIMULATING HORMONE 5.773 uIU/ML (0.55-4.78); TOTAL 25(OH) VITAMIN D 51.7 NG/ML (20.0-100.0)
[2023-06-06 13:24] LABS: FERRITIN 29.2 NG/ML (7.3-270.7)
[2023-06-06 13:27] LABS: HEMOGLOBIN A1c 5.2 % (4.0-6.0)
[2023-06-06 13:40] LABS: URIC ACID 2.1 MG/DL (3.1-7.8)
== END ==
LOC: M LAB 12:06
PROVIDERS: ATTEND Family Medicine
DX: D64.9 Anemia, unspecified (principal)

== ENCOUNTER → 2023-09-10 | Outpatient (CLI) | payer OTHER | LOC: M RAD 10:37 | PROVIDERS: ATTEND Physician Assistant Medical | DX: R06.02 Shortness of breath (principal); R05.9 Cough, unspecified ==

== ENCOUNTER → 2023-09-18 | Outpatient (REF) | payer OTHER ==
[2023-09-18 20:00] LABS: GC DNA AMPLIFICATION NEGATIVE (NEGATIVE)
== END ==
LOC: M SFHCWAGY 16:44 → M SMT 16:44
PROVIDERS: ATTEND Specialist
DX: Z20.2 Contact with and (suspected) exposure to infections with a predominantly sexual mode of transmission (principal); Z01.419 Encounter for gynecological examination (general) (routine) without abnormal findings

== ENCOUNTER → 2023-12-11 | Outpatient (CLI) | payer OTHER ==
[2023-12-11 08:26] LABS: HEMATOCRIT 42.5 % (36.0-47.0); HEMOGLOBIN 13.6 g/dl (12.0-15.5); MEAN CORPUSCULAR VOLUME 87.6 fl (80.0-96.0); PLATELET COUNT, AUTOMATED 295 10^3/uL (150-450); RED BLOOD COUNT 4.85 10^6/uL (4.00-5.40); WHITE BLOOD COUNT 4.9 10^3/uL (4.0-10.0)
[2023-12-11 08:31] LABS: ERYTHROCYTE SEDIMENTATION RATE 21 mm/hr (0-30)
[2023-12-11 08:52] LABS: C REACTIVE PROTEIN QUANTITATIV < 0.40 MG/DL (<1.0)
[2023-12-11 08:53] LABS: ALBUMIN 3.8 G/DL (3.2-5.2); ALKALINE PHOSPHATASE 53 U/L (46-116); ALT/SGPT 16 U/L (7.0-40); AST/SGOT 9 U/L (<34); BILIRUBIN,TOTAL 0.4 MG/DL (0.3-1.2); BLOOD UREA NITROGEN 12 MG/DL (9-23); CALCIUM LEVEL 9.3 MG/DL (8.3-10.6); CARBON DIOXIDE LEVEL 31 MMOL/L (20-31); CHLORIDE LEVEL 109 MMOL/L (98-107); CHOLESTEROL LEVEL 230 MG/DL (<200); CHOLESTEROL RISK RATIO 3.25 (<5); CREATININE FOR GFR 0.66 MG/DL (0.55-1.30); GLOMERULAR FILTRATION RATE > 60.0 (>45); GLUCOSE, FASTING 92 MG/DL (74-106); HDL CHOLESTEROL 70.7 MG/DL (>40); IRON (FE) 75 UG/DL (50-170); LDL CHOLESTEROL 144.7 MG/DL (<100); NON-HDL-C 159.3 MG/DL; PERCENT SATURATION 22.4 % (13.2-45.0); POTASSIUM SERUM 4.6 MMOL/L (3.5-5.1); SODIUM LEVEL 143 MMOL/L (136-145); THYROID STIMULATING HORMONE 4.593 uIU/ML (0.55-4.78); THYROXINE (T4) 7.4 UG/DL (4.5-10.9); TOTAL IRON BINDING CAPACITY 335 UG/DL (250-425); TOTAL PROTEIN 6.5 G/DL (5.7-8.2); TRIGLYCERIDES LEVEL 73 MG/DL (<150)
[2023-12-11 08:55] LABS: FOLATE 14.69 NG/ML (>5.4); VITAMIN B12 LEVEL 1144 PG/ML (211-911)
[2023-12-11 09:06] LABS: HEMOGLOBIN A1c 5.2 % (4.0-6.0)
[2023-12-11 09:42] LABS: ANTI-STREPTOLYSIN O QUANT 117.9 IU/ML (<195); IMMUNOGLOBULIN G 972 MG/DL (650-1600); RHEUMATOID FACTOR QUANT < 3.5 IU/ML (<14)
[2023-12-11 11:59] LABS: FREE T3 3.3 PG/ML (2.3-4.2)
[2023-12-12 15:42] LABS: ANA PATTERN Nuclear, Nucleolar (NEGATIVE); ANA SCREEN, IFA POSITIVE (NEGATIVE)
[2023-12-12 22:11] LABS: CYCLIC CITRULLINATED PEPTIDE < 16 UNITS (<20)
== END ==
LOC: M LAB 07:49
PROVIDERS: ATTEND Family Medicine
DX: R53.83 Other fatigue (principal); D64.9 Anemia, unspecified

== ENCOUNTER → 2024-03-14 | Outpatient (REF) | payer OTHER | LOC: M LAB REF 20:37 | PROVIDERS: ATTEND Physician Assistant Medical | DX: R05.9 Cough, unspecified (principal) ==

== ENCOUNTER → 2024-08-20 | Outpatient (CLI) | payer OTHER ==
[2024-08-20 08:02] LABS: BASO # 0.1 10^3/uL (0.0-0.2); BASO % 1.4 % (0.0-1.0); EOS # 0.4 10^3/uL (0.0-0.5); EOS % 7.6 % (0.0-3.0); HEMATOCRIT 42.3 % (36.0-47.0); HEMOGLOBIN 13.1 g/dl (12.0-15.5); LYMPH # 1.3 10^3/uL (1.5-5.0); LYMPH % 25.6 % (24.0-44.0); MEAN CORPUSCULAR HEMOGLOBIN 26.8 pg (27.0-33.0); MEAN CORPUSCULAR VOLUME 86.5 fl (80.0-96.0); MONO # 0.5 10^3/uL (0.0-0.8); MONO % 10.7 % (2.0-8.0); NEUTROPHILS # 2.7 10^3/uL (1.5-8.5); NEUTROPHILS % 53.9 % (36.0-66.0); PLATELET COUNT, AUTOMATED 303 10^3/uL (150-450); RED BLOOD COUNT 4.89 10^6/uL (4.00-5.40)
[2024-08-20 08:24] LABS: ALBUMIN 3.5 G/DL (3.2-5.2); ALKALINE PHOSPHATASE 60 U/L (35-104); ALT/SGPT 21 U/L (7.0-40); AST/SGOT 13 U/L (<34); BILIRUBIN,TOTAL 0.3 MG/DL (0.3-1.2); BLOOD UREA NITROGEN 12 MG/DL (9-23); C REACTIVE PROTEIN QUANTITATIV < 0.50 MG/DL (<1.0); CARBON DIOXIDE LEVEL 31 MMOL/L (20-31); CHLORIDE LEVEL 106 MMOL/L (98-107); CHOLESTEROL LEVEL 241 MG/DL (<200); CREATININE FOR GFR 0.68 MG/DL (0.55-1.30); GLOMERULAR FILTRATION RATE > 90.0 (>45); GLUCOSE, FASTING 93 MG/DL (74-106); HDL CHOLESTEROL 82.9 MG/DL (>40); IRON (FE) 69 UG/DL (50-170); LDL CHOLESTEROL 146.3 MG/DL (<100); NON-HDL-C 158.1 MG/DL; PERCENT SATURATION 21.7 % (13.2-45.0); POTASSIUM SERUM 4.7 MMOL/L (3.5-5.1); SODIUM LEVEL 143 MMOL/L (136-145); TOTAL IRON BINDING CAPACITY 318 UG/DL (250-425); TOTAL PROTEIN 6.5 G/DL (5.7-8.2); TRIGLYCERIDES LEVEL 59 MG/DL (<150)
[2024-08-20 08:37] LABS: ERYTHROCYTE SEDIMENTATION RATE 19 mm/hr (0-30)
== END ==
LOC: M LAB 06:40
PROVIDERS: ATTEND Family Medicine
DX: D64.9 Anemia, unspecified (principal); R53.83 Other fatigue

== ENCOUNTER → 2024-10-01 | Outpatient (CLI) | payer OTHER | LOC: M PLAIMG 07:56 | PROVIDERS: ATTEND Internal Medicine Critical Care Medicine | DX: R06.00 Dyspnea, unspecified (principal) ==

== ENCOUNTER → 2025-02-16 | Outpatient (REF) | payer OTHER ==
[2025-02-16 15:03] LABS: C REACTIVE PROTEIN QUANTITATIV < 0.50 MG/DL (<1.0); RHEUMATOID FACTOR QUANT < 3.5 IU/ML (<14)
[2025-02-18 14:28] LABS: ANA PATTERN 2 Nuclear, Homogeneous; ANA TITER 2 1:80 titer (NEGATIVE)
== END ==
LOC: M LAB REF 13:42
PROVIDERS: ATTEND Nurse Practitioner Family
DX: M25.50 Pain in unspecified joint (principal); R53.83 Other fatigue

== ENCOUNTER → 2025-02-19 | Outpatient (REF) | payer OTHER | LOC: M LAB REF 11:30 | PROVIDERS: ATTEND Physician Assistant | DX: B34.9 Viral infection, unspecified (principal); J02.9 Acute pharyngitis, unspecified ==

== ENCOUNTER → 2025-04-14 | Outpatient (REF) | payer OTHER | LOC: M LAB REF 12:04 | PROVIDERS: ATTEND Physician Assistant | DX: B34.9 Viral infection, unspecified (principal); J02.9 Acute pharyngitis, unspecified ==